=== PATIENT | female | born 1985 | race African-American/Black ===

== ENCOUNTER 2020-11-28 08:29 | Emergency (ER) | payer OTHER, SELFPAY ==
[2020-11-28 08:38] VITALS: BP 132/92; PULSE 82; RESP 20; TEMP 36.2; O2SAT 100
--- NOTE | 2020-11-28 09:12 | ED.FEMALEGU ---
HPI - Female Genitourinary General Chief complaint: Urogenital-Female Stated complaint: Poss yeast or STD infection Time Seen by Provider: 11/28/20 09:04 Source: patient and RN notes reviewed Mode of arrival: ambulatory Limitations: no limitations History of Present Illness HPI Narrative: Patient presents today complaining of a 2-day history of thick white vaginal discharge and external genital itching. States the symptoms began 2 days after having intercourse with her significant other. Denies any urinary symptoms to include dysuria, frequency, urgency. She is currently menstruating. Believing she has a vaginal yeast infection, she started using some Monistat 7 and is currently on day 2. Denies any relief of symptoms. She called and made an appointment with her ENERGY CONSERVATION ENGINEER, which is in 3 days. MD elicited complaint: vaginal discharge and genital itching Related Data Home Medications Medication Instructions Recorded Confirmed acyclovir 400 mg PO BID 11/28/20 11/28/20 amlodipine 5 mg PO DAILY 11/28/20 11/28/20 hydrochlorothiazide 25 mg PO DAILY 11/28/20 11/28/20 norethindrone ac-eth estradiol 1 tablet PO DAILY 11/28/20 11/28/20 [Junel ()] Allergies Allergy/AdvReac Type Severity Reaction Status Date / Time acetaminophen [From Vicodin] Allergy Mild Hives Verified 11/28/20 08:57 hydrocodone [From Vicodin] Allergy Mild Hives Verified 11/28/20 08:57 peanut Allergy Mild Dyspnea / Verified 11/28/20 08:57 SOB sulfamethoxazole Allergy Mild hives Verified 11/28/20 08:57 trimethoprim Allergy Mild hives Verified 11/28/20 08:57 Review of Systems Review of Systems: Narrative: CONSTITUTIONAL: Denies body aches, fever, chills, or sweats. EYES: Denies visual changes, redness, or discharge. ENT: Denies rhinorrhea, congestion, sore throat, or otalgia. CARDIOVASCULAR: Denies chest pain, palpitations, or edema. RESPIRATORY: Denies cough or dyspnea. GASTROINTESTINAL: Denies abdominal pain, nausea, vomiting, or diarrhea. GENITOURINARY: Denies dysuria.+ Vaginal discharge, genital itching SKIN: Denies rash, itching, or wounds. MUSCULOSKELETAL: Denies back pain, joint pain, or myalgia. NEUROLOGIC: Denies headache, numbness, tingling, or weakness. PSYCH: Denies depression or anxiety. [facility] Past Medical History Medical History (Updated 11/28/20 @ 09:18 by Rosetta Farris, INFERTILITY MEDICAL ASSISTANT, ) Hypertension Comments At time of signature, I have reviewed and agree with nursing past medical, surgical, social and family history unless otherwise noted. Please see nursing chart for further information. There is no relevant family history pertinent to the presenting complaint Exam Narrative: Exam Narrative: GENERAL: Well-appearing, well-nourished, and in no acute distress. HEAD: Normocephalic, atraumatic. EYES: EOMI. No redness or drainage. Conjunctivae normal. ENT: Mucous membranes pink and moist. NECK: Normal AROM. CHEST: No respiratory distress. : External genital irritation and mild edema. Pelvic exam shows no internal erythema or irritation of the vaginal canal or cervix. Moderate amount of blood in the vaginal canal. No other discharge noted. No tenderness to the vagina. -CMT MUSCULOSKELETAL: No bony tenderness. EXTREMITIES: Normal range of motion. No edema. SKIN: Warm, dry, no rash. Capillary refill normal. Normal skin turgor. NEURO: No focal deficits. Alert and oriented x3. Gait steady. PSYCH: Normal affect. No signs of depression or anxiety. Course Vital Signs Vital signs: Vital Signs Temperature 97.2 F L 11/28/20 08:38 Pulse Rate 82 11/28/20 08:38 Respiratory Rate 20 11/28/20 08:38 Blood Pressure 132/92 H 11/28/20 08:38 Pulse Oximetry 100 11/28/20 08:38 Temperature 97.2 F L 11/28/20 08:38 Pulse Rate 82 11/28/20 08:38 Respiratory Rate 20 11/28/20 08:38 Blood Pressure 132/92 H 11/28/20 08:38 Pulse Oximetry 100 11/28/20 08:38 Reviewed. Pt has been instructed to follow up wit
== END 2020-11-28 09:22 | disposition home or self-care (01) ==
PROVIDERS: Emergency Provider Nurse Practitioner; PCP Family Medicine
DX: B37.3 Candidiasis of vulva and vagina (principal); I10 Essential (primary) hypertension
CPT/HCPCS: 81003; 99203; G0463

== ENCOUNTER 2021-08-06 17:24 | Emergency (ER) | payer OTHER, SELFPAY ==
[2021-08-06 17:30] VITALS: BP 130/80; PULSE 71; RESP 18; TEMP 37.2; O2SAT 100
--- NOTE | 2021-08-06 17:37 | ED.FEMALEGU ---
HPI - Female Genitourinary General Chief complaint: Urogenital-Female Stated complaint: Kidney infection Time Seen by Provider: 08/06/21 17:37 Source: patient and RN notes reviewed History of Present Illness HPI Narrative: Patient is a 36-year-old female who presents the urgent care with complaints of possible UTI. Patient states that she has had left flank pain and urgency for the last 2 days. Patient is taken ibuprofen for her symptoms. Patient denies of any fever, chills, nausea, vomiting or blood in the urine. Patient states that her urgency is pretty normal for her because she drinks a lot of water and is on a water pill due to her high blood pressure. Patient denies of any history of diabetes or kidney disease. Patient denies of any recent strenuous activity or heavy lifting. No other acute complaints. No acute distress noted. Patient aware of the plan of care. Some parts of this dictation were generated by voice recognition software and may contain typographical and/or grammatical inaccuracies. Related Data Home Medications Medication Instructions Recorded Confirmed norethindrone ac-eth estradiol 1 tablet PO DAILY 11/28/20 08/06/21 [Junel ()] Allergies Allergy/AdvReac Type Severity Reaction Status Date / Time hydrocodone [From Vicodin] Allergy Mild Hives Verified 08/06/21 17:46 peanut Allergy Mild Dyspnea / Verified 08/06/21 17:46 SOB sulfamethoxazole Allergy Mild hives Verified 08/06/21 17:46 trimethoprim Allergy Mild hives Verified 08/06/21 17:46 Review of Systems Review of Systems: CONSTITUTIONAL: Denies fever, chills, or sweats. EYES: Denies visual changes, redness, or discharge. ENT: Denies rhinorrhea, congestion, sore throat, or otalgia. CARDIOVASCULAR: Denies chest pain, palpitations, or edema. RESPIRATORY: Denies cough or dyspnea. GASTROINTESTINAL: Denies abdominal pain, nausea, vomiting, or diarrhea. GENITOURINARY: Reports of left flank pain and urgency SKIN: Denies rash or itching. MUSCULOSKELETAL: Denies back pain, joint pain, or myalgia. NEUROLOGIC: Denies headache, numbness, or weakness. All other systems reviewed are negative, except as documented in HPI. COUNTS INCLUDE 234 BEDS AT THE [facility] Past Medical History Medical History (Updated 08/06/21 @ 18:00 by KUNAL Cantu) Hypertension Comments At the time of my signature, I reviewed and agree with the nursing past medical, surgical, social, and family history. There is no relevant family history pertinent to the patient complaint. Exam Narrative: GENERAL: This is a well-nourished, well-developed patient, in no apparent distress. HEAD: normocephalic, atraumatic. EYES: PERRL. Sclera clear/white. Vision is grossly intact. EARS: External ears normal NOSE: External nose normal with no obvious nasal discharge, nares without redness, no rhinorrhea. THROAT: Mucous membranes moist NECK: Neck supple CARDIOVASCULAR: Regular rate and rhythm without murmurs, gallops, or rubs. RESPIRATORY: Clear to auscultation. Breath sounds equal bilaterally. No wheezes, rales, or rhonchi. GASTROINTESTINAL: Abdomen soft, non-tender, nondistended. Bowel sounds are active. SKIN: warm, intact with no suspicious lesions or rash, good texture and turgor. NEURO: awake, alert, and oriented to person, place and time. There were no obvious focal neurologic abnormalities. EXTREMITIES: No clubbing, cyanosis, or edema. BACK: Left CVA tenderness. Pain exacerbated with rotation of the back and bending at the waist. Course Vital Signs Vital signs: Vital Signs Temperature 98.9 F 08/06/21 17:30 Pulse Rate 71 08/06/21 17:30 Respiratory Rate 18 08/06/21 17:30 Blood Pressure 130/80 08/06/21 17:30 Pulse Oximetry 100 08/06/21 17:30 Temperature 98.9 F 08/06/21 17:30 Pulse Rate 71 08/06/21 17:30 Respiratory Rate 18 08/06/21 17:30 Blood Pressure 130/80 08/06/21 17:30 Pulse Oximetry 100 08/06/21 17:30 Reviewed MDM - Female Genitourinary MDM
== END 2021-08-06 18:02 | disposition home or self-care (01) ==
PROVIDERS: Emergency Provider Nurse Practitioner Family; PCP Family Medicine
DX: R10.9 Unspecified abdominal pain (principal); I10 Essential (primary) hypertension
CPT/HCPCS: 81003; 99213; G0463

== ENCOUNTER 2025-07-26 10:01 | Emergency (ER) | payer OTHER, SELFPAY ==
[2025-07-26 10:06] VITALS: BP 132/99; PULSE 97; RESP 20; TEMP 36.4; O2SAT 100
--- OUTSIDE RECORDS SUMMARY | 2025-07-26 10:31 | XMS_ITS | Clinical Summary ---
Author Organization [facility] Address [address] [place] [address] Phone Care Team Providers Care Mimeograph Operator Name Role Phone Bill Ackerman MD Primary Care Provider [phone] Allergies Active Allergy Reactions Criticality Noted Date Comments Sulfamethoxazole-Trimethoprim Hives 2015 Hydrocodone Hives 08/21/2016 Peanut Oil Anaphylaxis 07/25/2015 anaphylaxis Pseudoephedrine Hcl Hives 07/25/2015 Medications ALBUTEROL IN take 2 Puffs by inhalation 4 times daily as needed. Active Norethindrone Acet-Ethinyl Est (MICROGESTIN) 1.5-30 MG-MCG TabletIndications:A bnormal Uterine Bleeding,PHARMACIST I AM WRITING FOR 3 PACKS OF THE 21 DAY BUBBLE PACK. Take 1 Tab by mouth daily. Indications: Symptomatic Variation from Normal Periods, PHARMACIST I AM WRITING FOR 3 PACKS OF THE 21 DAY BUBBLE PACK. 63 Tab 12/08/19 20 Active ibuprofen (MOTRIN) 800 MG Tablet Take 1 Tab by mouth every 8 hours. 30 Tab 12/08/19 20 Active hydrOXYzine (ATARAX) 25 MG Tablet Take 1 Tab by mouth every 6 hours as needed for Itching. 20 Tab 03/03/20 20 Active amLODIPine (NORVASC) 5 MG Tablet Take 1 Tab by mouth daily. 30 Tab 03/31/20 20 Active hydroCHLOROthiazide 25 MG Tablet Take 25 mg by mouth daily. Active traMADol (ULTRAM) 50 MG Tablet Take 1 Tablet by mouth every 6 hours as needed for Moderate or more severe pain. 20 Tablet 11/02/19 21 Active Additional Information Patient not taking.Reported on 01/16/2022 fluticasone (FLONASE) 50 MCG/ACT Suspension 1-2 Sprays by Nasal route daily. Use in each nostril as directed. 1 Bottle 02/26/20 21 Active albuterol 108 (90 Base) MCG/ACT Aerosol Solution take 2 Puffs by inhalation every 6 hours as needed for Cough. 6.7 g 09/06/20 21 Active aluminum & magnesium hydroxide-simethico ne 200-200-20 MG/5ML SUSP 90 mL, diphenhydrAMINE 12.5 MG/5ML LIQD 31.25 mg, Lidocaine Viscous HCl 2 % SOLN 20 mL 5-10 mL by Swish & Spit route every 6 hours as needed for Irritation. for mouth/throat discomfort. Use the following amounts for each 120 mL dispensed Pharmacist Mixture Instructions *ALUM & MAG HYDROXIDE-SIMETH 200-200-20 MG/5ML PO SUSP -- 90 mL *DIPHENHYDRAMINE HCL 12.5 MG/5ML PO ELIX -- 31.25 MG *LIDOCAINE VISCOUS 2% MT SOLN -- 20 mL 360 mL 11/22/19 23 Active naproxen (NAPROSYN) 500 MG Tablet Take 1 Tablet by mouth 2 times daily as needed for Moderate or more severe pain. 10 Tablet 04/11/20 23 Active predniSONE (DELTASONE) 50 MG Tablet Take 1 Tablet by mouth daily. 5 Tablet 07/01/20 25 Active naproxen (NAPROSYN) 500 MG Tablet Take 1 Tablet by mouth 2 times daily as needed for Moderate or more severe pain. 20 Tablet 07/01/20 25 Active Active Problems No known active problems Encounters Date Type Department Care Team Description 07/01/2025 8:59 AM CDT - 07/01/2025 10:01 AM CDT Emergency [facility] Emergency [address] [place] [address] Dionicio Pulido DO Bilateral carpal tunnel syndrome Discharge Disposition: Discharged to home or Selfcare 07/01/2025 Travel from Last 3 Months Immunizations Immunization Administration Dates Next Due DTP Vaccine 01/29/1989,09/06/1988,05/17/1988 Hepatitis B Vaccine, Pediatric/adolescent 1996,04/18/1997 Hepatitis B, Adolescent/high Risk 998 Hib Vaccine,unspecified Formulation 01/29/1989 MMR Vaccine 09/06/1988 OPV 09/06/1988,05/17/1988 TDAP Vaccine 04/12/2019 Social History Tobacco Use Types Packs/Day Years Used Date Smoking Tobacco: Former Smokeless Tobacco: Never Tobacco Cessation:Counseling Given: Not Answered Alcohol Use Standard Drinks/Week Comments Yes 0 (1 standard drink = 0.6 oz pur e alcohol) ONCE A MONTH Sexually Active Control Partners Comments Yes Condom Comments No Sex and Gender Information Value Date Recorded Sex Assigned at Not on file Legal 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 Gender Identity Not on file Sexual Orientation Not on file Last Filed Vital Signs Vital Sign Reading Time Taken Comments Blood Pressure 128/88 07/01/2025 10:00 AM CDT Pulse 80 07/01/2025 10:00 AM CDT Temperature 36.3 C (97.4 F) 07/01/2025 10:00 AM CDT Respiratory Rate 16 07/01/2025 10:00 AM CDT Oxygen Saturation 100% 07/01/2025 10:00 AM CDT Inhaled Oxygen Concentration - - Weight 91.3 kg (201 lb 4.5 oz) 07/01/2025 9:04 A M CDT Height 165.1 cm (5' 5) 07/01/2025 9:04 AM CDT Body Mass Index 33.49 07/01/2025 9:04 AM CDT Plan of Treatment Health Maintenance Due Date Last Done Comments Hepatitis C Virus (HCV) Screening 1987 Pap Smear 2008 Human Papillomavirus (HPV) Immunization (1 - 3-dose SCDM series) 2014 Cervical Cancer Screening (CCS) 2017 HPV/Cotest 2017 Influenza Immunization (#1) 2025 SARS-COV-2 Immunization ( - season) 2025 DTaP/Tdap/Td Immunization (5 - Td or Tdap) 04/12/2029 04/12/2019, 01/29/1989, 09/06/1988, Additional history exists Respiratory Syncytial Virus (RSV) Immunization (Adult) (1 - 1-dose 75+ series) 2062 Hepatitis B Immunization Completed 998, 05/23/1997, 04/18/1997 TdaP Immunization Discontinued 04/12/2019 Meningococcal Immunization (ACWY) Aged Out No longer eligible based on patient's age to complete this topic Pneumococcal Immunization Combined Aged Out No longer eligible based on patient's age to complete this topic Rotavirus Immunization Aged Out No lo nger eligible based on patient's age to complete this topic Procedures Procedure Name Priority Date/Time Associated Diagnosis Comments POCT URINE HCG () STAT 07/01/2025 9:30 AM CDT from Last 3 Months Results * POCT Urine HCG () (07/01/2025 9:30 AM CDT) POC URINE Negative POC URINE CONTROL Hypoid Gear Generator Pass Urine 07/01/2025 9:30 AM CDT Dionicio Pulido DO POINT OF CARE TESTING ( MANUAL) Final Result from Last 3 Months Insurance MEDICAID [employer] MEDICAID [facility] * Guarantor: [facility] Account Type Relation to Patient Date of Phone Billing Address Institutional Other [id number] [id number] Care Teams Mimeograph Operator Relationship Specialty Start Date End Date Bill Ackerman MD [address] [place] [address] [address] [place] [id number] PCP - General Family Medicine 05/21/17
--- OUTSIDE RECORDS SUMMARY | 2025-07-26 10:31 | XMS_ITS | Data Portability ---
[facility] Organization [facility] [address] [facility] [place] [address] Care Team Providers Care Casting Finisher Name Role Phone BILL RAE Primary Care Provider [phone] LAURITA MEDELLIN Aerial Gunner Assessment Encounter Date Assessment Date Assessment LastModified by Organization Details LastModified Time 08/29/2022 08/29/2022 new ocp called into pharmacy, pt given u/s order and told to follow up with [facility]. pt v/u. [email or web address] Not available 08/29/2022 15:18:27 07/01/2023 07/01/2023 will check a prolactin as well as a diagnostic mammogram despite normal exam will call with results [email or web address] Not available 07/01/2023 14:38:32 05/26/2024 05/26/2024 Certain lab tests will be repeated. [email or web address] Not available 05/31/2024 10:14:27 Plan of Treatment Reminders Order Date Submit Date Provider Last Modified By Organization Details Last Modified Time Details Appointments None recorded. Lab HbA1c (hemoglob in A1c), blood 2023 024 In-Office Order, Internal Use Only DO Not Attach Compendium DO Not Attach Compendium, Do Not Delete/merge, [id number] 17:15:25 hepatitis B surface Ab, qualitati ve, serum 2023 024 [facility], [address] [place] [address], [address], 4 06:18:01 HBsAg (hepatiti s B surface Ag), EIA, serum 2023 024 [email or web address], [address] [facility], [address], [place], [address], 4 14:00:34 hepatitis panel (A+B+C), acute, serum 2023 024 [facility], [address] [facility], [facility] [address], [place], [address], 4 06:18:00 prolactin , serum 2022 023 [facility], [address] [facility], [facility] [address], [place], [address], 3 11:14:42 CMP, serum or plasma 2022 023 [facility], [address] [facility], [facility] [address], [place], [address], 3 20:09:04 lipid panel, serum 2022 023 [facility], [address] [facility], [facility] [address], [place], [address], 3 20:09:04 CBC w/ auto diff 2022 023 [facility], [address] [place] [address], [facility] [address], [place], [address], 3 20:09:05 TSH, ultra-sen sitive, serum 2022 023 [facility], [address] [facility], [facility] [address], [place], [address], 3 08:33:34 HbA1c (hemoglob in A1c), blood 2022 023 [email or web address] In-Office Order, Internal Use Only DO Not Attach Compendium DO Not Attach Compendium, Do Not Delete/merge, [id number] 3 14:40:54 vitamin D, 25-hydrox y, total, serum 2022 023 [facility], [address] [facility], [facility] [address], [place], [address], 3 08:33:35 Referral gynecolog ic surgery referral 2022 023 [employer], [address], [address], [place], [address], 4 17:37:14 Procedures None recorded. Surgeries None recorded. Imaging MAMMO, diagnosti c, digital, bilateral 2022 023 [facility] Scheduling, [address] [facility] [place], [address], 3 17:25:35 US, pelvis, transabdo ted + transvagi nal 2021 022 [facility] Scheduling, [address] [facility] [place], [address], 3 11:47:55 Medication Orders Vitamin D2 1,250 mcg (50,000 unit) capsule 2023 024 [place] [id number], [address], [place], [address], 4 17:20:46 Ozempic 0.25 mg or 0.5 mg (2 mg/1.5 mL) subcutane ous pen injector 2022 023 [email or web address] Not available 3 12:59:24 albuterol sulfate 2.5 mg/3 mL (0.083 %) solution for nebulizat ion 2022 023 [facility] Not available 3 10:58:25 albuterol sulfate HFA 90 mcg/actua tion aerosol inhaler 2022 023 [facility] Not available 3 10:58:24 amlodipin e 5 mg tablet 2022 023 [facility] Not available 3 10:55:38 hydrochlo rothiazid e 25 mg tablet 2022 023 [facility] Not available 3 10:55:37 Diflucan 150 mg tablet 2021 etodaroma Not available 4 16:46:30 metronida zole 500 mg tablet 2021 [email or web address] Not available 4 11:24:27 Ortho Micronor 0.35 mg tablet 2021 etodaroma Not available 4 16:46:52 Patient TargetsNo targets recorded. Patient Instructions Encounter Date Encounter Id Patient Instructions Last Modified By Organization Details Last Modified Time 08/29/2022 [id number] heavy menstrual periods: care instructions [email or web address] Not available 08/29/2022 15:20:07 05/15/2023 [id number] learning about type 2 diabetes [email or web address] Not available 05/15/2023 10:54:38 type 2 diabetes: care instructions [email or web address] Not available 05/15/2023 10:54:38 A healthy lifestyle: care instructions [email or web address] Not available 05/15/2023 14:40:54 learning about high blood pressure [email or web address] Not available 05/15/2023 10:55:33 07/31/2023 [id number] heavy menstrual periods: care instructions [email or web address] Not available 07/31/2023 15:30:07 uterine fibroids: care instructions [email or web address] Not available 07/31/2023 15:30:07 05/26/2024 [id number] A healthy lifestyle: care instructions Not available 05/26/2024 17:15:25 Reason for Referral Gynecologic Surgery Referral for Uterine leiomyoma Referring Physician: Laurita Medellin, Getterer, Encounter Date: 07/31/2023 Results Created Date Observation Date Name Description Value Unit Range Abnormal Flag Note LastModifiedBy Organization Detail LastModifiedTime 05/15/20 23 05/15/2023 LIPID PANEL cholesterol, total 188 mg/dL 100-19 9 Not Available [facility] [address] [place], [address], 05/15/2023 20:09:03 05/15/20 23 05/15/2023 LIPID PANEL triglyceride s 621 mg/dL 0-149 above high normal Not Available [facility] [address] [place], [address], 05/15/2023 20:09:03 05/15/20 23 05/15/2023 LIPID PANEL HDL cholesterol 56 mg/dL 40-999 Not Available [facility] Department [address] [place] [address], [address], 05/15/2023 20:09:03 05/15/20 23 05/15/2023 LIPID PANEL VLDL cholesterol alona 124 mg/dL 5-40 above high normal Not Available [facility] [address] [place] [address], [address], 05/15/2023 20:09:03 05/15/20 23 05/15/2023 LIPID PANEL LDL chol calc (nih) 117 mg/dL 0-99 above high normal Not Available [facility] [address] [place] [address], [address], 05/15/2023 20:09:03 05/15/20 23 05/15/2023 COMP. METAB OLIC PANEL (14) glucose 143 mg/dL 70-99 above high normal Not Available [facility] [address] [place], [address], 05/15/2023 20:09:04 05/15/20 23 05/15/2023 COMP. METAB OLIC PANEL (14) BUN 12 mg/dL 6-20 Not Available [facility] [address] [place], [address], 05/15/2023 20:09:04 05/15/20 23 05/15/2023 COMP. METAB OLIC PANEL (14) creatinine 0.80 mg/dL 0.76-1 .27 Not Available [facility] [address] [place] [address], [address], 05/15/2023 20:09:04 05/15/20 23 05/15/2023 COMP. METAB OLIC PANEL (14) eGFR 98 >=60 Units for eGFR value s are mL/mi n/1.7 3 The eGFR Calcu latio n has not been valid ated for patie nts under the age of 18. If test resul ts are displ ayed for a patie nt under the age of 18, disre gerry that value . Not Available [facility] [address] [place] [address], [address], 05/15/2023 20:09:04 05/15/20 23 05/15/2023 COMP. METAB OLIC PANEL (14) BUN/creatini ne ratio 15 9-23 Not Available [facility] Department [address] [place] [address], [address], 05/15/2023 20:09:04 05/15/20 23 05/15/2023 COMP. METAB OLIC PANEL (14) sodium 139 mmol/ L 134-14 4 Not Available [facility] [address] [place] [address], [address], 05/15/2023 20:09:04 05/15/20 23 05/15/2023 COMP. METAB OLIC PANEL (14) potassium 4.5 mmol/ L 3.5-5. 2 Not Available [facility] [address] [place] [address], [address], 05/15/2023 20:09:04 05/15/20 23 05/15/2023 COMP. METAB OLIC PANEL (14) chloride 103 mmol/ L 96-106 Not Available [facility] [address] [place] [address], [address], 05/15/2023 20:09:04 05/15/20 23 05/15/2023 COMP. METAB OLIC PANEL (14) carbon dioxide, total 22 mmol/ L 20-29 Not Available [facility] [address] [place], [address], 05/15/2023 20:09:04 05/15/20 23 05/15/2023 COMP. METAB OLIC PANEL (14) calcium 9.6 mg/dL 8.7-10 .2 Not Available [facility] [address] [place], [address], 05/15/2023 20:09:04 05/15/20 23 05/15/2023 COMP. METAB OLIC PANEL (14) protein, total 7.1 g/dL 6.0-8. 5 Not Available [facility] [address] [place] [address], [address], 05/15/2023 20:09:04 05/15/20 23 05/15/2023 COMP. METAB OLIC PANEL (14) albumin 4.2 g/dL 3.9-4. 9 Not Available [facility] [address] [place], [address], 05/15/2023 20:09:04 05/15/20 23 05/15/2023 COMP. METAB OLIC PANEL (14) globulin, total 2.9 g/dL 1.5-4. 5 Not Available [facility] [address] [place], [address], 05/15/2023 20:09:04 05/15/20 23 05/15/2023 COMP. METAB OLIC PANEL (14) A/G ratio 1.5 1.2-2. 2 Not Available [facility] [address] [place] [address], [address], 05/15/2023 20:09:04 05/15/20 23 05/15/2023 COMP. METAB OLIC PANEL (14) bilirubin, total 0.5 mg/dL 0.0-1. 2 Not Available [facility] [address] [place], [address], 05/15/2023 20:09:04 05/15/20 23 05/15/2023 COMP. METAB OLIC PANEL (14) alkaline phosphatase 66 IU/L 44-121 Not Available [facility] Department [address] [place], [address], 05/15/2023 20:09:04 05/15/20 23 05/15/2023 COMP. METAB OLIC PANEL (14) AST (SGOT) 17 IU/L 0-40 Not Available [facility] Department [address] [place], [address], 05/15/2023 20:09:04 05/15/20 23 05/15/2023 COMP. METAB OLIC PANEL (14) ALT (SGPT) 15 IU/L 0-32 Not Available [facility] Department [address] [place], [address], 05/15/2023 20:09:04 05/15/20 23 05/15/2023 CBC WITH DIFFE RENTI AL/PL ATELE T WBC 5.8 x10e3 /uL 3.4-10 .8 Not Available [facility] [address] [place], [address], 05/15/2023 20:09:05 05/15/20 23 05/15/2023 CBC WITH DIFFE RENTI AL/PL ATELE T RBC 4.16 x10e6 /uL 3.77-5 .28 Not Available [facility] [address] [place], [address], 05/15/2023 20:09:05 05/15/20 23 05/15/2023 CBC WITH DIFFE RENTI AL/PL ATELE T hemoglobin 13.2 g/dL 11.1-1 5.9 Not Available [facility] [address] [place], [address], 05/15/2023 20:09:05 05/15/20 23 05/15/2023 CBC WITH DIFFE RENTI AL/PL ATELE T hematocrit 40.7 % 34.0-4 6.6 Not Available [facility] [address] [place], [address], 05/15/2023 20:09:05 05/15/20 23 05/15/2023 CBC WITH DIFFE RENTI AL/PL ATELE T MCV 98 fL 79-97 above high normal Not Available [facility] [address] [place], [address], 05/15/2023 20:09:05 05/15/20 23 05/15/2023 CBC WITH DIFFE RENTI AL/PL ATELE T MCH 31.7 pg 26.6-3 3.0 Not Available [facility] [address] [place], [address], 05/15/2023 20:09:05 05/15/20 23 05/15/2023 CBC WITH DIFFE RENTI AL/PL ATELE T MCHC 32.4 g/dL 31.5-3 5.7 Not Available [facility] [address] [place], [address], 05/15/2023 20:09:05 05/15/20 23 05/15/2023 CBC WITH DIFFE RENTI AL/PL ATELE T RDW 12.7 % 11.5-1 4.5 Not Available [facility] [address] [place], [address], 05/15/2023 20:09:05 05/15/20 23 05/15/2023 CBC WITH DIFFE RENTI AL/PL ATELE T platelets 310 x10e3 /uL 150-45 0 Not Available [facility] [address] [place], [address], 05/15/2023 20:09:05 05/15/20 23 05/15/2023 CBC WITH DIFFE RENTI AL/PL ATELE T neutrophils 40 % notest b. Not Available [facility] [address] [place], [address], 05/15/2023 20:09:05 05/15/20 23 05/15/2023 CBC WITH DIFFE RENTI AL/PL ATELE T lymphs 50 % notest b. Not Available [facility] [address] [place], [address], 05/15/2023 20:09:05 05/15/20 23 05/15/2023 CBC WITH DIFFE RENTI AL/PL ATELE T monocytes 8 % notest b. Not Available [facility] [address] [place], [address], 05/15/2023 20:09:05 05/15/20 23 05/15/2023 CBC WITH DIFFE RENTI AL/PL ATELE T eos 2 % notest b. Not Available [facility] [address] [place], [address], 05/15/2023 20:09:05 05/15/20 23 05/15/2023 CBC WITH DIFFE RENTI AL/PL ATELE T basos 1 % notest b. Not Available [facility] [address] [place], [address], 05/15/2023 20:09:05 05/15/20 23 05/15/2023 CBC WITH DIFFE RENTI AL/PL ATELE T neutrophils (absolute) 2.3 x10e3 /uL 1.4-7. 0 Not Available [facility] [address] [place], [address], 05/15/2023 20:09:05 05/15/20 23 05/15/2023 CBC WITH DIFFE RENTI AL/PL ATELE T lymphs (absolute) 2.9 x10e3 /uL 0.7-3. 1 Not Available [facility] [address] [place], [address], 05/15/2023 20:09:05 05/15/20 23 05/15/2023 CBC WITH DIFFE RENTI AL/PL ATELE T monocytes(ab solute) 0.4 x10e3 /uL 0.1-0. 9 Not Available [facility] [address] [place], [address], 05/15/2023 20:09:05 05/15/20 23 05/15/2023 CBC WITH DIFFE RENTI AL/PL ATELE T eos (absolute) 0.1 x10e3 /uL 0.0-0. 4 Not Available [facility] [address] [place], [address], 05/15/2023 20:09:05 05/15/20 23 05/15/2023 CBC WITH DIFFE RENTI AL/PL ATELE T baso (absolute) 0.0 x10e3 /uL 0.0-0. 2 Not Available [facility] [address] [place], [address], 05/15/2023 20:09:05 05/15/20 23 05/15/2023 CBC WITH DIFFE RENTI AL/PL ATELE T immature granulocytes 0.2 % notest b. Not Available [facility] [address] [place], [address], 05/15/2023 20:09:05 05/15/2005/15/2023 CBC WITH DIFFE RENTI AL/PL ATELE T immature grans (abs) 0.0 x10e3 /uL 0.0-0. 1 Not Available [facility] [address] [place], [address], 05/15/2023 20:09:05 05/15/20 23 05/15/2023 CBC WITH DIFFE RENTI AL/PL ATELE T NRBC 0 % 0-0 Not Available [facility] [address] [place], [address], 05/15/2023 20:09:05 05/15/20 23 05/16/2023 TSH TSH 2.220 uIU/m L 0.450- 4.500 Not Available [facility]) [address] [facility], [place], [address], 05/16/2023 08:33:34 05/15/20 23 05/16/2023 VITAM IN D, 25-HY DROXY vitamin D, 25-hydroxy 19.9 NG/mL 30.0-1 00.0 below low normal Vitam in D defic iency has been defin ed by the Insti tute of Medic ine and an Endoc rine Socie ty pract ice guide line as a level of serum 25-OH vitam in D less than 20 ng/mL (1,2) . The Endoc rine Socie ty went on to furth er defin e vitam in D insuf ficie ncy as a level betwe en 21 and 29 ng/mL (2). 1. IOM (Inst itute of Medic ine). 2010. Dieta ry refer ence intak es for calci um and D. Kin ofng [place]: The [facility] Press . 2. Mandy goncalves MF, Isma padilla [place], Suzy off-F errar i MARTINEZ, et al. Evalu ation , treat ment, and preve ntion of vitam in D defic iency : an Endoc rine Socie ty clini alona pract ice guide line. JCEM. 2010; 96(7) :1911 -30. Not Available [facility] ([facility]) [address] [facility], [place], [address], 05/16/2023 08:33:35 05/15/20 23 05/15/2023 HbA1c (hemo globi n A1c), blood HbA1c 6.5 Not Available In-Office Order Internal Use Only DO Not Attach Compendium DO Not Attach Compendium, Do Not Delete/merge, [id number] 05/15/2023 10:30:04 07/01/20 23 07/02/2023 PROLA CTIN prolactin 14.4 NG/mL 4.8-23 .3 Not Available [facility]) [address] [facility], [place], [address], 07/02/2023 11:14:42 05/26/20 24 05/26/2024 HbA1c (hemo globi n A1c), blood HbA1c 5.5 Not Available In-Office Order Internal Use Only DO Not Attach Compendium DO Not Attach Compendium, Do Not Delete/merge, [id number] 05/26/2024 16:56:20 06/14/20 24 06/15/2024 ACUTE HEPAT ITIS hep A Ab, IgM NEGATI VE negati ve A negat kalia anti- HAV IgM resul t sugge sts no recen t or curre nt HAV infec tion. Not Available [facility]) [address] [facility], [place], [address], 06/15/2024 06:18:00 06/14/20 24 06/15/2024 ACUTE HEPAT ITIS HBsAg screen NEGATI VE negati ve Not Available [facility]) [address] [facility], [place], [address], 06/15/2024 06:18:00 06/14/20 24 06/15/2024 ACUTE HEPAT ITIS hep B core Ab, IgM NEGATI VE negati ve Not Available [facility]) [address] [facility], [place], [address], 06/15/2024 06:18:00 06/14/20 24 06/15/2024 ACUTE HEPAT ITIS HCV Ab NON REACTI VE nonrea ctive Not Available [facility]) [address] [facility], [place], [address], 06/15/2024 06:18:00 06/14/20 24 06/15/2024 INTER PRETA TION: interpretati on: Commen t Not infec marlena with HCV unles s early or acute infec tion is suspe cted (whic h may be delay ed in an immun ocomp romis ed indiv idual ), or other evide nce exist s to indic ate HCV infec tion. Not Available [facility]) [address] [facility], [place], [address], 06/15/2024 06:18:01 06/14/20 24 06/15/2024 HEP B SURFA CE AB, QUAL hep B surface Ab, qual REACTI VE Non React kalia: Not immun e to HBV infec tion. Equiv ocal: Unabl e to deter mine if anti- HBs is prese nt at level s consi stent with immun ity. React kalia: Anti- HBs yesenia ntrat ion detec marlena at great er than 10 mIU/m L. Indiv idual is consi dered to be immun e to infec tion with HBV. Not Available [facility]) [address] [facility], [place], [address], 06/15/2024 06:18:01 11/19/19 25 11/18/2024 Influ sandra virus A and B and SARS- CoV-2 (COVI D-19) and Respi rator y syncy tial virus RNA panel - Respi rator y syste m speci men by GRAYSON with probe detec tion influenza virus A RNA [presence] in upper respiratory specimen by GRAYSON with probe detection Positi ve text: negati ve, error abnormal FLU A Posit kalia (A) Negat kalia, Error 11/18 12:10 AM CORPORATE LAW ASSISTANT [facility] [employer] [facility] Not Available Not Available 11/23/2024 12:02:49 11/19/19 25 11/18/2024 Influ sandra virus A and B and SARS- CoV-2 (COVI D-19) and Respi rator y syncy tial virus RNA panel - Respi rator y syste m speci men by GRAYSON with probe detec tion influenza virus B RNA [presence] in upper respiratory specimen by GRAYSON with probe detection Negati ve text: negati ve FLU B Negat kalia Negat kalia 11/18 12:10 AM CORPORATE LAW ASSISTANT [facility] [employer] [facility] Not Available Not Available 11/23/2024 12:02:49 11/19/19 25 11/18/2024 Influ sandra virus A and B and SARS- CoV-2 (COVI D-19) and Respi rator y syncy tial virus RNA panel - Respi rator y syste m speci men by GRAYSON with probe detec tion respiratory syncytial virus RNA [presence] in respiratory system specimen by GRAYSON with probe detection Negati ve text: negati ve RESP SYNC VIRUS Negat kalia Negat kalia 11/18 12:10 AM CORPORATE LAW ASSISTANT [facility] [employer] [facility] Not Available Not Available 11/23/2024 12:02:49 11/19/19 25 11/18/2024 Influ sandra virus A and B and SARS- CoV-2 (COVI D-19) and Respi rator y syncy tial virus RNA panel - Respi rator y syste m speci men by GRAYSON with probe detec tion sars-cov-2 (covid-19) N gene [presence] in specimen by GRAYSON with probe detection NOT DETECT ED text: (refer ence range for this test IS not detect ed) SARSC OV2 NOT DETEC MARLENA (Refe rence Range for this test is Not Detec marlena) 11/18 12:10 AM CORPORATE LAW ASSISTANT [facility] [employer] [facility] Not Available Not Available 11/23/2024 12:02:49 11/19/19 25 11/18/2024 Influ sandra virus A and B and SARS- CoV-2 (COVI D-19) and Respi rator y syncy tial virus RNA panel - Respi rator y syste m speci men by GRAYSON with probe detec tion interpretati on and review of laboratory results Abnorm al Not Available Not Available 12:02:49 01/23/2001/23/2025 Chlam ydia trach omati s and Neiss eria gonor rhoea e DNA panel - Speci men chlamydia trachomatis DNA [presence] in specimen by GRAYSON with probe detection NEGATI VE text: negati ve Presu med negat kalia for C. trach omati s. A negat kalia resul t does not precl ude C. trach omati s infec tion becau se resul ts are depen dent on adequ ate speci men colle ction , absen ce of inhib itors , and suffi cient DNA to be detec marlena. This test was perfo rmed using [employer] 5800 Real Time PCR. Not Available Not Available 04/04/2025 12:44:44 01/23/20 25 01/23/2025 Chlam ydia trach omati s and Neiss eria gonor rhoea e DNA panel - Speci men neisseria gonorrhoeae DNA [presence] in specimen by GRAYSON with probe detection NEGATI VE text: negati ve Presu med negat kalia for N. gonor rhoea e. A negat kalia resul t does not precl ude N. gonor rhoea e infec tion becau se resul ts are depen dent on adequ ate speci men colle ction , absen ce of inhib itors , and suffi cient DNA to be detec marlena. This test was perfo rmed using [employer] 5800 Real Time PCR. Not Available Not Available 04/04/2025 12:44:44 01/23/2001/23/2025 Chlam ydia trach omati s and Neiss eria gonor rhoea e DNA panel - Speci men interpretati on and review of laboratory results Normal Not Available Not Available 03/16 12:44:44 01/23/2001/24/2025 Bacte zaira ident ified in Urine by Cultu re bacteria identified in urine by culture MIXED GROWTH OF ONE OR MORE DISTAL URETHR AL CONTAM INANTS Not Available Not Available 12:44:44 01/09/2001/05/2023 US, pelvi s, trans abdom inal + trans vagin al No observ ation record ed. bettye More[facility] Scheduling [address], [place], [address], 01/08/2023 12:13:12 07/04/20 23 07/04/2023 US, gilson carreon bilsalma eraraulito No observ ation record ed. [facility] [address], [place], [address], 07/04/2023 17:25:53 07/04/20 23 07/04/2023 MAMMO , diagn ostic , digit al, bilat eral No observ ation record ed. [facility] [address], [place], [address], 07/04/2023 17:25:35 10/07/19 24 10/07/2023 XR, chest No observ ation record ed. [email or web address] Not Available 2023 14:38:01 07/21/20 24 07/21/2024 MAMMO , scree janeen, digit al, bilat eral No observ ation record ed. [facility] [address], [place], [address], 07/22/2024 11:35:25 07/21/20 24 07/21/2024 MAMMO , scree janeen, digit al, bilat eral No observ ation record ed. [facility] [address], [place], [address], 07/22/2024 11:35:15 07/21/20 24 07/21/2024 MAMMO , scree janeen, digit al, bilat eral No observ ation record ed. [facility] [address], [place], [address], 07/22/2024 11:35:04 Result Notes None recorded. Problems Name Problem SNOMED Code Status Onset Date Resolution Date Notes Provider Name and Address Organization Details Recorded Time Uterine leiomyoma 48545852 Active Gila La, RMA null, [place] [facility] 12:53:01 Vaginal discharge 078435350 Active Gila La, R[place] [facility] 12:53:01 Sexually transmitted infectious disease 0402412 Active Gila La, R[place] [facility] 12:53:01 Candidiasis of vagina 19281789 Active Gila La, R[place], [place] [facility] 12:53:01 Asthma 286585219 Active Gila Tovar RMPeter null, [facility] 2 12:53:01 Allergy Active MARGRET Guardado null, [facility] 2 12:53:01 Bacterial vaginosis 355349673 Active Gila Tovar RMA null, [facility] 2 12:53:01 Menorrhagia 501083121 Active Gila Tovar RMA null, [facility] 2 12:53:01 Genital herpes simplex 84435558 Active Gila Tovar RMA null, [facility] 2 12:53:01 Problem Notes None recorded. Procedures Surgical History Date Name Laterality Status Provider Name and Address Organization Details Recorded Time 10/20/2019 Date of Last Pap Smear completed Ivis Dang MA [facility] 12/22/2019 08:11:47 Imaging Results None recorded. Procedure Notes None recorded. Medical Equipment None Reported. Allergies Allergen ID Allergen Name Allergen Category Reaction Reaction Severity Criticality Documentation Date Start Date Code Code System Note Provider Name and Address Organization Details Recorded Time 529047 Sudafed medicatio n hives Not available Not available 04/09/2022 2 RxNorm Chrystal Covarrubias RN null, [facility] 2 15:59:18 769389 Ozempic medicatio n Not available Not available Not available 08/19/2023 07 RxNorm visio n probl ems Alem Minor RN [facility], [facility] 5 16:12:30 1646 acetamino phen medicatio n Not available Not available Not available 08/04/2014 161 RxNorm Sandra Mcdaniel [facility], [facility] 4 18:44:53 1647 acetamino phen / hydrocodo ne medicatio n Not available Not available Not available 08/04/2014 92852 2 RxNorm Sandra Mcdaniel [facility], [facility] 4 18:44:53 1648 Substance with sulfonami de structure and antibacte rial mechanism of action (substanc e) medicatio n Not available Not available Not available 08/04/2014 38863 8003 SNOMED Sandra Mcdaniel null, [place] [facility] 4 18:44:53 Medications Name Sig Start Date Stop Date Status Note LastModified by Organization Details LastModified Time microgest in 10/04 1-20 mg-mcg tabs 05/21 completed Not Available Not Available Not Available prednison e tab 20mgpredn isone active Not Available Not Available Not Available cyclobenz apr tab 5mgcyclob enzaprine hcl active Not Available Not Available Not Available tobramyci n jesús 0.3% optobramy sunil sulfate active Not Available Not Available Not Available ibuprofen tab 800mgibup rofen active Not Available Not Available Not Available valacyclo vir tab 500mgvala cyclovir hcl active Not Available Not Available Not Available cyclobenz aprine hcl 10 mg tabs active Not Available Not Available Not Available valacyclo vir hcl 500 mg tabs active Not Available Not Available Not Available 10/04 tabjunel 10/04 active Not Available Not Available Not Available tramadol hcl tab 50mgtrama dol hcl active Not Available Not Available Not Available microgest in tab 10/04micro gestin 10/04 active Not Available Not Available Not Available phenazopy rid tab 100mgphen azopyridi ne hcl active Not Available Not Available Not Available Prescript ion - Prior Authoriza tion Request active Not Available Not Available Not Available ciproflox acn tab 500mgcipr ofloxacin hcl active Not Available Not Available Not Available metronida zol tab 500mg active Not Available Not Available Not Available permethri n cre 5%permeth rin active Not Available Not Available Not Available hydrocodo ne/acetam inophen 5-325 mgtabs active Not Available Not Available Not Available amoxicill in/clavul anate potassium 500-125 mg tabs active Not Available Not Available Not Available cyclobenz aprine 10 mg tablet TAKE 1 TABLET BY MOUTH 3 TIMES DAILY NEEDED FOR MUSCLE SPASMS FOR UP TO 3 DAYS. 05/15 completed Not Available Not Available Not Available amoxicill in 500 mg capsule TAKE 1 CAPSULE BY MOUTH TWICE A DAY 10/21 completed Not Available Not Available Not Available hydrocodo ne 7.5 mg-ibupro fen 200 mg tablet 05/21 completed Not Available Not Available Not Available promethaz ine-DM 6.25 mg-15 mg/5 mL oral syrup 10/20 completed Not Available Not Available Not Available doxycycli ne hyclate 100 mg capsule TAKE 1 CAPSULE BY MOUTH TWICE A DAY FOR 7 DAYS active Not Available Not Available No t Available naproxen 375 mg tablet 10/20 completed Not Available Not Available Not Available nabumeton e 750 mg tablet 10/20 completed Not Available Not Available Not Available albuterol sulfate 2.5 mg/3 mL (0.083 %) solution for nebulizat ion INHALE 3 ML BY NEBULIZA TION 4 TIMES A DAY NEEDED active Not Available Not Available No t Available trazodone 50 mg tablet 10/20 completed Not Available Not Available Not Available cetirizin e 10 mg tablet TAKE 1 TABLET BY MOUTH EVERY DAY active Not Available Not Available No t Available azithromy sunil 250 mg tablet 05/07 completed Not Available Not Available Not Available ibuprofen 800 mg tablet 12/17 completed Not Available Not Available Not Available tizanidin e 4 mg tablet 10/20 completed Not Available Not Available Not Available fluconazo le 150 mg tablet TAKE 1 TABLET BY MOUTH AT FIRST SIGNS OF A YEAST INFECTIO N, TO BE REPEATED ONE WEEK LATER 2024 active Not Available Not Available Not Avai lable hydrocodo ne 5 mg-acetam inophen 325 mg tablet 05/21 completed Not Available Not Available Not Available meloxicam 15 mg tablet 05/21 completed Not Available Not Available Not Available phenazopy ridine 200 mg tablet TAKE 1 TABLET BY MOUTH 3 TIMES DAILY FOR 3 DAYS. 05/07 completed Not Available Not Available Not Available metronida zole 0.75 % (37.5 mg/5 gram) vaginal gel Insert 1 applicat orful twice a week by vaginal route for 2 days. 12/26 completed Not Available Not Available Not Available ondansetr on HCl 4 mg tablet 10/20 completed Not Available Not Available Not Available prednison e 20 mg tablet TAKE 1 TABLET BY MOUTH TWICE A DAY FOR 4 DAYS 05/15 completed Not Available Not Available Not Available terconazo le 0.8 % vaginal cream Insert 1 applicat orful every day by vaginal route at bedtime. 07/02 completed Not Available Not Available Not Available permethri n 5 % topical cream 05/21 completed Not Available Not Available Not Available clindamyc in HCl 150 mg capsule TAKE 3 CAPSULES (450 MG TOTAL) BY MOUTH 3 (THREE) TIMES A DAY FOR 10 DAYS 10/25 completed Not Available Not Available Not Available metronida zole 500 mg tablet TAKE 1 TABLET BY MOUTH TWICE A DAY FOR 7 DAYS active Not Available Not Available No t Available chlorthal idone 25 mg tablet TAKE 1 TABLET BY MOUTH EVERY DAY 04/01 completed Not Available Not Available Not Available amlodipin e 5 mg tablet TAKE 1 TABLET BY MOUTH EVERY DAY 2024 active Not Available Not Available Not Avai lable acyclovir 400 mg tablet TAKE 1 TABLET BY MOUTH TWICE A DAY 05/20 completed Not Available Not Available Not Available valacyclo vir 500 mg tablet Take 1 tablet twice a day by oral route as directed for 3 days. 05/21 completed Not Available Not Available Not Available ciproflox acin 500 mg tablet 12/26 completed Not Available Not Available Not Available tramadol 50 mg tablet 12/17 completed Not Available Not Available Not Available triamcino lone acetonide 0.1 % topical cream 10/20 completed Not Available Not Available Not Available amoxicill in 875 mg tablet 10/20 completed Not Available Not Available Not Available methocarb barbara 750 mg tablet 10/20 completed Not Available Not Available Not Available gentamici n 0.3 % eye drops 12/17 completed Not Available Not Available Not Available oxycodone -acetamin ophen 10 mg-325 mg tablet 10/20 completed ER Not Available Not Available Not Available meclizine 25 mg tablet 12/17 completed Not Available Not Available Not Available diazepam 2 mg tablet 05/21 completed Not Available Not Available Not Available phenazopy ridine 100 mg tablet 05/21 completed Not Available Not Available Not Available baclofen 10 mg tablet Take 1 tablet every day by oral route at bedtime for 30 days. 10/20 completed Not Available Not Available Not Available amlodipin e 10 mg tablet TAKE 1 TABLET BY MOUTH EVERY DAY 05/15 completed Not Available Not Available Not Available benzonata te 100 mg capsule TAKE 1 CAPSULE BY MOUTH THREE TIMES A DAY NEEDED FOR 10 DAYS 05/26 completed Not Available Not Available Not Available doxycycli ne monohydra te 100 mg capsule TAKE 1 CAPSULE BY MOUTH TWICE A DAY FOR 10 DAYS active Not Available Not Available No t Available cephalexi n 500 mg capsule TAKE 1 CAPSULE BY MOUTH TWICE A DAY active Not Available Not Available No t Available erythromy sunil 5 mg/gram (0.5 %) eye ointment 12/26 completed Not Available Not Available Not Available tobramyci n 0.3 % eye drops 12/17 completed Not Available Not Available Not Available nystatin 100,000 unit/gram topical cream 10/20 completed Not Available Not Available Not Available buspirone 10 mg tablet 10/20 completed Psychiat rist Not Available Not Available Not Available indometha sunil 50 mg capsule Take 1 capsule 3 times a day by oral route for 30 days. 10/20 completed Not Available Not Available Not Available hydroxyzi ne HCl 25 mg tablet 04/05 completed Not Available Not Available Not Available acyclovir 200 mg capsule 01/09 completed Not Available Not Available Not Available hydrochlo rothiazid e 25 mg tablet TAKE 1 TABLET BY MOUTH EVERY DAY active Not Available Not Available No t Available mupirocin 2 % topical ointment 10/20 completed Not Available Not Available Not Available norethind shirley acetate 5 mg tablet 08/29 completed Not Available Not Available Not Available ergocalci ferol (vitamin D2) 1,250 mcg (50,000 unit) capsule TAKE 1 CAPSULE BY MOUTH ONE TIME PER WEEK DIRECTED active Not Available Not Available No t Available hydroxych loroquine 200 mg tablet Take 1 tablet twice a day by oral route for 7 days. 12/17 completed Not Available Not Available Not Available Q-Tussin 100 mg/5 mL oral liquid 05/21 completed Not Available Not Available Not Available methylpre dnisolone 4 mg tablets in a dose pack TAKE 6 TABLETS ON DAY 1 DIRECTED ON PACKAGE AND DECREASE BY 1 TAB EACH DAY FOR A TOTAL OF 6 DAYS 05/26 completed Not Available Not Available Not Available albuterol sulfate HFA 90 mcg/actua tion aerosol inhaler INHALE 2 PUFFS BY MOUTH EVERY 4 HOURS NEEDED PATIEN T NEEDS TO SCHEDULE APPOINTM ENT active Not Available Not Available No t Available norethind shirley (contrace ptive) 0.35 mg tablet TAKE 1 TABLET BY MOUTH EVERY DAY 05/26 completed Not Available Not Available Not Available fluticaso ne propionat e 50 mcg/actua tion nasal spray,luann pension USE 1 SPRAY IN EACH NOSTRIL EVERY NIGHT BEFORE BED active Not Available Not Available No t Available sertralin e 50 mg tablet 10/26 completed Not Available Not Available Not Available doxycycli ne hyclate 100 mg tablet Take 1 tablet twice a day by oral route for 7 days. 12/17 completed Not Available Not Available Not Available loratadin e 10 mg tablet Take 1 tablet every day by oral route for 30 days. 10/26 completed Not Available Not Available Not Available naproxen 500 mg tablet TAKE 1 TABLET BY MOUTH 2 TIMES DAILY NEEDED FOR MODERATE OR MORE SEVERE PAIN. 05/15 completed Not Available Not Available Not Available amoxicill in 875 mg-potass ium clavulana te 125 mg tablet TAKE 1 TABLET BY MOUTH TWICE A DAY FOR 10 DAYS 12/17 completed Not Available Not Available Not Available amoxicill in 500 mg-potass ium clavulana te 125 mg tablet 01/09 completed Not Available Not Available Not Available buspirone 15 mg tablet 10/20 completed Not Available Not Available Not Available tobramyci n 0.3 %-dexamet hasone 0.1 % eye drops,luann pension 04/05 completed Not Available Not Available Not Available cyclobenz aprine 5 mg tablet 05/21 completed Not Available Not Available Not Available Microgest in 10/04 (21) 1 mg-20 mcg tablet TAKE ONE TABLET BY MOUTH DAILY 12/26 completed [employer] Supervisor Not Available Not Available Not Available (21) 1.5 mg-30 mcg tablet PLEASE SEE ATTACHED FOR DETAILED DIRECTIO NS 08/29 completed Not Available Not Available Not Available FE 10/04 (28) 1 mg-20 mcg (21)/75 mg (7) tablet TAKE 1 TABLET BY MOUTH EVERY DAY 12/26 completed duplicat e Not Available Not Available Not Available nitrofura ntoin monohydra te/macroc rystals 100 mg capsule TAKE 1 CAPSULE BY MOUTH TWICE DAILY FOR 7 DAYS active Not Available Not Available No t Available quetiapin e 50 mg tablet 10/25 completed Not Available Not Available Not Available Tri Femynor (28) 0.18 mg(7)/0.2 15 mg(7)/0.2 5 mg(7)-35 mcg tablet TAKE 1 TABLET BY MOUTH EVERY DAY 07/02 completed Not Available Not Available Not Available Ozempic 0.25 mg or 0.5 mg (2 mg/1.5 mL) subcutane ous pen injector Inject by subcutan eous route for 84 days. 08/14 completed Not Available Not Available Not Available Slynd 4 mg (28) tablet TAKE 1 EACH (4 MG TOTAL) BY MOUTH DAILY 05/26 completed Not Available Not Available Not Available Gina Fe 1.5/30 (28) 1.5 mg-30 mcg (21)/75 mg (7) tablet TAKE 1 TABLET BY MOUTH AT THE SAME TIME EVERY DAY TO PREVENT PREGNANC Y 05/26 completed Not Available Not Available Not Available Ozempic 1 mg/dose (4 mg/3 mL) subcutane ous pen injector INJECT 1MG UNDER THE SKIN ONCE A WEEK active Not Available Not Available No t Available Ozempic 0.25 mg or 0.5 mg (2 mg/3 mL) subcutane ous pen injector active Not Available Not Available Not Available Vitals Date Recorded Body height Body mass index (BMI) Body weight Oxygen saturation Oxygen saturation in Arterial blood by Pulse oximetry Respiratory rate Heart rate Body temperature Systolic And Diastolic Provider Name and Address Organization Details Last Updated DateTime 3 165.1 cm 36.3 kg/m2 74488.5 9 g 99 % 99 % 16 /min 75 /min 96.9 [degF] 136/91 mm[Hg] Dalia Montemayor [place] - [facility] 3 10:25:31 Date Recorded Body height Body temperature Respiratory rate Body mass index (BMI) Body weight Heart rate Systolic And Diastolic Provider Name and Address Organization Details Last Updated DateTime 4 165.1 cm 98.8 [degF] 16 /min 34.5 kg/m2 19949.3 7 g 91 /min 130/91 mm[Hg] Heri Johnson MA [place] - [facility] 4 16:48:48 Date Recorded Body height Body mass index (BMI) Body weight Systolic And Diastolic Provider Name and Address Organization Details Last Updated DateTime 07/01/2023 165.1 cm 35.9 kg/m2 45501.95 g 122/74 mm[Hg] Gila Tovar [facility] 07/01/2023 14:22:52 Date Recorded Body height Body mass index (BMI) Body weight Heart rate Systolic And Diastolic Provider Name and Address Organization Details Last Updated DateTime 07/31/2023 165.1 cm 35.7 kg/m2 79065.57 g 80 /min 123/84 mm[Hg] Polly Key MA [facility] 07/31/2023 14:58:21 Date Recorded Body height Body mass index (BMI) Body weight Systolic And Diastolic Provider Name and Address Organization Details Last Updated DateTime 08/29/2022 165.1 cm 35.1 kg/m2 96208.59 g 126/84 mm[Hg] Polly Key MA [facility] 08/29/2022 14:56:14 Social History Question Answer Notes LastModified by Organizat ion Details LastModified Time Tobacco Smoking Status Former Smoker [facility] 04/03/2021 17:20:32 Do You Have An Advance Directive? No Information not available 12/17/2021 Are You Blind Or Do You Have Difficulty Seeing? Yes Contact Information not available 12/17/2021 What Is Your Level Of Caffeine Consumption? None Information not available 12/17/2021 In The 14 Days Before Symptom Onset, Have You Had Close Contact With A Laboratory-confir med COVID-19 While That Case Was Ill? No Information not available 12/17/2021 In The 14 Days Before Symptom Onset, Have You Had Close Contact With A Person Who Is Under Investigation For COVID-19 While That Person Was Ill? No Information not available 12/17/2021 Have You Been To An Area Known To Be High Risk For COVID-19? No Information not available 12/17/2021 Are You Deaf Or Do You Have Serious Difficulty Hearing? No Information not available 12/17/2021 What Type Of Diet Are You Following? REGULAR Information not available 12/17/2021 Are There Any Guns Present In Your Home? No Information not available 12/17/2021 Live Alone Or With Others? With Others [email or web address] Information not available 09/27/2014 Do You Have A High School Diploma Or Higher Education? Yes Information not available 12/17/2021 Do You Sometimes Have To Miss Your Medical Appointments Due To Difficult Getting Transportation? No Information not available 12/17/2021 Do You Feel Unfairly Treated Due To Things Such As Race, Age, Gender, Disability Or Some Other Reason? No Information not available 12/17/2021 Do You Feel Physically And Emotionally Safe While Living At Home? Yes Information not available 12/17/2021 Do You Feel Physically And Emotionally Safe In Your Neighborhood Or Other Public Places? Yes Information not available 12/17/2021 Preferred Name Yohana pelaez Informatio n not available 12/17/2021 Sex Assigned At Female Information not available 08/04/2014 In School? No Information no t available 08/05/2014 Lives With With Kids Information no t available 08/05/2014 How Life Is Going Good Informa tion not available 08/05/2014 Life Going Well In General Yes Information not available 08/05/2014 Needs Help With Counseling/issues /referrals No Information not available 08/05/2014 Sexual Attraction Opposite Sex Infor mation not available 08/05/2014 Have You Ever Had Sex? Yes Information not available 08/05/2014 # Sex Partners Had 1 Information not available 08/05/2014 Teen No Information no t available 08/05/2014 Date Of Last Pap? 07/16/2013 Approx. Date Information not available 08/05/2014 Have You Ever Had A Pap Smear? Yes Information not available 08/05/2014 Current Gender Identity Female Information not available 08/04/2014 Marital Status Single Informatio n not available 08/05/2014 What Was The Date Of Your Most Recent Tobacco Screening? 05/26/2024 Information not available 05/26/2024 How Many Children Do You Have? 2 Information not available 08/05/2014 What Is Your Current Pack Years? 10packyears Information not available 12/17/2021 What Is Your Relationship Status? Single Information not available 12/17/2021 Do You Use Your Seat Belt Or Car Seat Routinely? Yes Information not available 12/17/2021 Are You Sexually Active? No Information not available 12/17/2021 Do You Have Smoke And Carbon Monoxide Detectors In Your Home? Yes Information not available 12/17/2021 At What Age Did You Start Smoking Tobacco? 18 Information not available 12/17/2021 Are You Passively Exposed To Smoke? No Information no t available 12/17/2021 How Much Tobacco Do You Smoke? No Information not available 12/27/2019 Do You Use Sunscreen Routinely? No Information not available 12/17/2021 Has Tobacco Cessation Counseling Been Provided? No Information not available 05/15/2023 On What Date Was Tobacco Cessation Counseling Provided? 05/26/2024 Information not available 05/26/2024 How Many Years Have You Smoked Tobacco? 7 Information not available 12/27/2019 Sex: Female Functional Status Question Answer Note LastModified by Organizat ion Details LastModified Time Do you use any illicit or recreational drugs? No Information not available 12/17/2021 Do you or have you ever used any other forms of tobacco or nicotine? No [email or web address] Information not available 04/03/2021 What is your level of alcohol consumption? Occasional Information not available 08/05/2014 Do you or have you ever used smokeless tobacco? Never used smokeless tobacco Information not available 12/27/2019 Are you currently employed? Yes Information not available 12/17/2021 Are you able to care for yourself independently? 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 Never used electronic cigarettes Information not available 12/27/2019 What is your exercise level? Occasional Information not available 12/17/2021 Mental Status Question Answer Note LastModified by Organization D etails LastModified Time Do you feel stressed (tense, restless, nervous, or anxious, or unable to sleep at night)? [id number] Information not available 12/17/2021 Family History Relationship Description Onset Age of this Age Resolved Age Notes LastModified by Organization Details LastModified Time Mother Allergy Not available 09/25/2015 09:22:06 Mother Asthma Not available 09/25/2015 09:22:06 Mother Diabetes mellitus [email or web address] Not available 2015 09:22:06 Mother Hypertensive disorder [email or web address] Not available 2015 09:22:06 Maternal Uncle 53 [email or web address] Not available 020 10:19:05 Maternal Grandfather 78 [email or web address] Not available 03/2020 10:19:13 Maternal Aunt 50 Pneumo jaycee COVID [email or web address] Not available 12/17/2021 17:01:34 Notes:No changes reported 07/05, 05/15/23, 05/26/24 Medical History Condition Response Asthma Y Allergies Y Gynecological History Statement/Question Response Flow Moderate Date of LMP 07/16/2023 Menses Monthly Y STIs/STDs Y Date of Last Pap Smear 10/20/2019 Duration of Flow (days) 5 Age at Menarche 13 Current Control Method BCPs Age at First Child 20 LMP Approximate Obstetrics History GPAL:G 2 P 2 0 0 2 Type Value Full Term 2 Living 2 Total 2 Past Encounters Encounter ID Performer Location Encounter Start Date Encounter Closed Date Diagnosis/Indication Diagnosis SNOMED-CT Code Diagnosis ICD10 Code Diagnosis IMO Codes Diagnosis Note [id number] Cleo Phillips-TIFFANIE Cornelius-SERAFIN Shook ([facility]) [address] [facility] [address] 08/05/2014 09:59:31 08/05/2014 11:33:52 Bacterial vaginosis [id number] MD Bo[place] Cuevas ([place] [address]) [address] [place] [address] 09/27/2014 15:28:10 09/28/2014 11:57:36 Menorrhagia 372943231 patient will receive a sufficient number of refills to last until her annual exam with Dr Dai in January. Genital he rpes simplex 12928622 Patient desires a refill for Valtrex in the event of an outbreak [id number] MD Bo[place] Grace ([place] [address]) [address] [place] [address] 03/16/2015 09:19:47 03/21/2015 16:14:06 Uterine leiomyoma 01706399 Uses contraception 06599437 [id number] MD Bo[place] Brown ([place] [address]) [address] [place] [address] 09/25/2015 09:16:10 09/25/2015 10:13:06 Vaginal discharge 234088586 N89.8 Uterine leiomyoma 540954 05 D25.9 Gynecologi c examination 16754578 Z01.419 [id number] MD [place] Brown ([place] [address]) [address] [place] [address] 11/13/2015 15:35:53 11/14/2015 18:04:34 Sexually transmitted infectious disease 7173252 A64 [id number] LOPEZ Vázquez ([place] [address]) [address] [facility] [place] [address] 08/29/2016 15:58:38 09/03/2016 13:56:42 Contraception care 988568238 Z30.40 Genital he rpes simplex 59359895 A60.9 Fatigue 13353234 R53.83 Uterine leiomyoma 356595 05 D25.9 [id number] LOPEZ Vázquez ([place] [address]) [address] [facility] [place] [address] 01/09/2017 10:35:00 01/14/2017 10:12:37 Gynecologic examination 36951398 Z01.419 Vaginal discharge 005559 006 N89.8 Genital he rpes simplex 97653421 A60.9 Contraception care 95933 5005 Z30.40 [id number] VIVIENNE Vázquez [facility] ([address] [address]) [address] [place] [address] 02/11/2017 10:01:09 02/11/2017 11:56:15 Vaginal discharge 527949480 N89.8 Uterine leiomyoma 901429 05 D25.9 [id number] Phuc Guillory MD [facility] ([facility]) [address] [place] [address] 05/21/2017 14:23:16 05/29/2017 03:46:27 [id number] Bill Rae MD [facility] [address] [place] [address] 05/28/2017 15:25:04 05/30/2017 11:16:38 Low back pain 537955249 M54.5 Pain of wrist region 566 28753 M25.619 [id number] [facility] [address] [facility] [facility] [address] [place] [address] 09/07/2018 10:55:34 09/10/2018 09:12:22 Venereal disease screening 353255746 Z11.3 Contracept ion care management 373591106 Z30.9 Uses oral contraception 3061448 Z30.41 Vaginal discharge 401880 006 N89.8 for recurrent bv Genital he rpes simplex 36410355 A60.9 [id number] LOPEZ Vázquez [place] [address] OB [address] [facility] [address] [place] [address] 10/20/2019 09:28:11 10/21/2019 11:08:30 Gynecologic examination 22367000 Z01.419 1. Counseled regarding prevention of STD's , condom use and prevention . 2. Counseled regarding contracept kalia options, risk factors and side effects. 3. Advised avoidance of tobacco, alcohol, and drugs . 4. Counseled regarding folic acid supplement ation, calcium needs and prevention of osteoporos is . 5. BSE reviewed and recommende d. 6. Follow up in one year or sooner if needed. Pain in pelvis [id number] R10.2 Will order pelvic ultrasound . Pt advised on treatment options for ovarian cysts and fibroids including but not limited to control use. Pt educated on other causes of pelvic pain included but not limited to constipati on or bladder issues. Pt verbalized understand ing. Will follow up pending results. [facility] [id number] Z30.9 1. Reviewed all forms of control with patient including risk factors and side effects. 2. Counseled on STD transmissi on and prevention , condom use and prevention . 3. Pt would like to continue with OCP. Educated on correct use and side effects. Will send rx to pharmacy. 4. Follow up for med check in 12 months, sooner if needed. Candidiasis of vagina 72 098231 B37.3 [id number] MD Boone Kendrick 14 OB [address] [facility] [place] [address] 12/22/2019 10:15:38 12/23/2019 10:23:49 Uterine leiomyoma 68050064 D25.9 [id number] MD Boone Valdes 14 IM [address] [facility] [place] [address] 12/27/2019 09:08:30 12/28/2019 13:49:42 Dyspnea 024589495 R06.00 Seasonal a llergic rhinitis 286230405 J30.2 [id number] MD Boone Valdes 14 IM [address] [facility] [place] [address] 03/21/2020 09:25:38 03/22/2020 20:05:08 Family grieving 562289638 Z63.8 [id number] MD Boone Valdes 14 IM [address] [facility] [place] [address] 04/05/2020 08:27:17 04/11/2020 15:31:03 Essential hypertension 44601244 I10 Obesity 475345067 E66.9 [id number] Laurita Medellin AP[employer]S SYSTEMS ANALYST- Boone 14 OB [address] [facility] [place] [address] 2020 15:30:28 05/04/2020 10:07:37 Vaginal discharge 611260669 N89.8 Meds sent to pharmacy. Counseled on bv/yeast prevention and treatment. Will call office back if treatment does not help with symptoms. Pt verbalized understand ing. [id number] [facility] Boone 14 OB [address] [facility] [place] [address] 06/08/2020 11:52:41 06/09/2020 12:18:10 Uterine leiomyoma 91059257 D25.9 Will follow up with second opinion, does not want to return to Dr. Wren. [id number] MD Boone Valdes 14 [address] [facility] [place] [address] 10/25/2020 17:19:16 10/27/2020 15:28:41 Essential hypertension 22821686 I10 [id number] LOPEZ Vázquez 14 OB [address] [facility] [place] [address] 04/03/2021 17:09:49 04/05/2021 06:56:03 Contraception care management 920800149 Z30.9 1. Reviewed all forms of control with patient including risk factors and side effects. 2. Counseled on STD transmissi on and prevention , condom use and prevention . 3. Pt would like to continue with OCP. Educated on correct use and side effects. Will send rx to pharmacy. 4. Follow up for med check in 12 months, sooner if needed. [id number] MD Boone Valdes 14 [address] [facility] [place] [address] 12/17/2021 16:45:04 12/18/2021 14:55:22 Essential hypertension 55744365 I10 Prediabetes 007907687 R7 3.03 Asthma 446697588 J45.90 9 History of SARS-CoV-2 29 89200212 16919238 Z86.16 [id number] [facility] Boone 14 OB [address] [facility] [place] [address] 01/03/2022 15:14:03 01/04/2022 06:31:09 Gynecologic examination 09187188 Z01.419 1. Counseled regarding prevention of STD's , condom use and prevention . 2. Counseled regarding contracept kalia options, risk factors and side effects. 3. Advised avoidance of tobacco, alcohol, and drugs . 4. Counseled regarding folic acid supplement ation, calcium needs and prevention of osteoporos is . 5. BSE reviewed and recommende d. 6. Follow up in one year or sooner if needed. Vaginal irritation 19296 6004 N89.8 Nuswab done and sent to lab. Counseled on STD prevention and condom use. Counseled on yeast and BV prevention . Will follow up pending lab results. [facility] ion care management [id number] Z30.9 1. Reviewed all forms of control with patient including risk factors and side effects. 2. Counseled on STD transmissi on and prevention , condom use and prevention . 3. Pt would like to continue with OCP. Educated on correct use and side effects. Will send rx to pharmacy. 4. Follow up for med check in 12 months, sooner if needed. [id number] Laurita Medellin, [facility] Boone 14 OB [address] [facility] [place] [address] 08/29/2022 14:38:52 08/30/2022 10:29:31 Menorrhagia 308447054 N92.0 Will order pelvic ultrasound . Pt advised on treatment options for fibroids, if found on u/s including but not limited to control use. Pt educated on other causes of menorraghi a including but not limited to constipati on or bladder issues, hormone imbalances , stress, menopausal symptoms. Pt verbalized understand ing. Will follow up pending results. Vaginal discharge 668223 006 N89.8 Meds sent to pharmacy. Counseled on bv/yeast prevention and treatment. Will call office back if treatment does not help with symptoms. Pt verbalized understand ing. [id number] MD Boone Valdes 14 IM [address] [facility] [place] [address] 05/15/2023 10:19:46 05/16/2023 15:56:46 Obesity 652839262 E66.9 Prediabetes 118620335 R7 3.03 Type 2 anita betes mellitus 28437747 E11.9 Essential hypertension 95974774 I10 Vitamin D deficiency 347 58300 E55.9 Asthma 486503138 J45.90 9 [id number] MD Boone Kendrick 14 OB [address] [facility] [place] [address] 07/01/2023 14:15:05 07/02/2023 11:54:52 Bilateral discharge from nipples [id number] N64.52 [id number] KUNAL Vázquez-SERAFIN Shook 14 OB [address] [facility] [place] [address] 07/31/2023 14:46:45 08/01/2023 12:12:52 Menorrhagia 563702747 N92.0 Pt advised on treatment options for fibroids, if found on u/s including but not limited to control use. Pt educated on other causes of menorraghi a including but not limited to constipati on or bladder issues, hormone imbalances , stress, menopausal symptoms. Pt verbalized understand ing. Will follow up pending results. Uterine leiomyoma 567559 05 D25.9 Will follow up with referral to [facility]. [id number] MD Boone Valdes 14 IM [address] [facility] [place] [address] 05/26/2024 16:37:37 06/01/2024 09:49:39 Overweight 495858279 E66.3 Immunizati on status unknown 395490013 Z76.89 Vitamin D deficiency 347 93027 E55.9 Health Concerns Section Related Observation LastModified by Organization Detai ls LastModified Time None Recorded Concern Status LastModified by Organization Details LastModified Time None Recorded Advance Directives Directive N: Payers Insurance Date Sequence Insurance Name Policy Number Policy Moran Covered Member ID Moran Member ID Guarantor Name 05/26/2024 1 [facility] - DOS ON OR AFTER 21 (MEDICAID REPLACEMENT - HMO) Truongise Nanci [id number] Truongise Nanci 04/11/2025 1 [facility] - DOS ON OR AFTER 21 (MEDICAID REPLACEMENT - HMO) Jamise Nanci [id number] Jamise Nanci 05/26/2024 1 [facility] - DOS PRIOR TO 2021 (MEDICAID REPLACEMENT - HMO) Jamise Nanci [id number] Jamise Nanci 05/26/2024 1 [facility] (MEDICAID HMO) Truongise Nanci [id number] Truongise Nanci 06/20/2025 1 [place] [id number] Yohana Christine [id number] Yohana Christine 05/26/2024 1 [place] [facility] PUBLIC AID Yohana Christine [id number] Yohana Christine Notes Date Note Type Note Provider Name and Address Organization Details Recorded Time 08/29/20 22 text/ht ml Annual GYNReported by PatientGenitourinary symptomsFor menstrual cycle, patient reportsmenorrhagiaandirregular cycle intervals. For urinary symptoms, patient reportsno hematuriaandno incontinence. For vulva, patient reportsno genital lesion.Breast symptomsFor breast, patient reportsno breast pain,no breast lump, andno nipple discharge.ContraceptionFor current contraception, patient reportswants to discuss contraceptive options.Endocrine symptomsFor sexual complaints, patient reportsno sexual complaints,no pain during intercourse, andnormal libido. For menopausal symptoms, patient reportsno menopausal symptomsandnormal vaginal lubrication.Psychological symptomsFor psychological symptoms, patient reportsno depression,no anxiety, andno pmdd.Preventative measuresFor preventive measures, patient reportsencourage self breast examination,encourage regular exercise,encourage no tobacco use,encourage regular mammograms starting age 40, andfollowed with q3 year pap smear and high risk hpv typing.ROS as noted in the HPI 37 yo fe here for heavy bleeding, seeing [facility]- pt wants to go back on control, explained to patient the risk of blood clots, stroke with ocp use and age/htn- last pap wnl 10/20/19- hx asthma, uterine fibroids- seeing [facility]- does not like the ocp they put her on, states her bleeding is worse, is due for follow up ultrasound and office visit with specialist KUNAL Vázquez- Attn: Accounting, [address] [facility], [place], [address], [facility] - [facility] 08/29/2022 15:19:55 05/15/20 23 text/ht ml ROS as noted in the HPI Per intake note. Bill Rae MD Attn: Accounting, [address] [place], [address], [place] - [facility] 05/20/2023 12:01:34 07/01/20 23 text/ht ml a few months of bilateral nipple discharge recently off OCPs for period control due to possible BP issues. Braden Wren, MD Attn: Accounting, [address] [facility], [place], [address], [place] [facility] 07/01/2023 14:38:45 07/31/20 23 text/ht ml Annual GYNReported by PatientGenitourinary symptomsFor menstrual cycle, patient reportsmenorrhagiaandirregular cycle intervals. For urinary symptoms, patient reportsno hematuriaandno incontinence. For vulva, patient reportsno genital lesion.Breast symptomsFor breast, patient reportsno breast pain,no breast lump, andno nipple discharge.ContraceptionFor current contraception, patient reportswants to discuss contraceptive options.Endocrine symptomsFor sexual complaints, patient reportsno sexual complaints,no pain during intercourse, andnormal libido. For menopausal symptoms, patient reportsno menopausal symptomsandnormal vaginal lubrication.Psychological symptomsFor psychological symptoms, patient reportsno depression,no anxiety, andno pmdd.Preventative measuresFor preventive measures, patient reportsencourage self breast examination,encourage regular exercise,encourage no tobacco use,encourage regular mammograms starting age 40, andfollowed with q3 year pap smear and high risk hpv typing.ROS as noted in the HPI 38 yo fe here for heavy bleeding, was seeing [facility], would like referral to go back- normal mammogram 07/04/23- last pap wnl 10/20/19- hx asthma, uterine fibroids Laurita Medellin [facility]- Attn: Accounting, [address] [facility], [place], [address], [place] 07/31/2023 15:30:36 05/26/20 24 text/ht ml ROS as noted in the HPI Pt has begun a new job and is concerned about certain lab results. Bill Rae MD Attn: Accounting, [address] [facility], [place], [address], [place] [facility] 05/31/2024 10:14:51 OBGyn Episode No OBEpisode recorded.
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
--- OUTSIDE RECORDS SUMMARY | 2025-07-26 10:31 | XMS_ITS | Encounter Summary ---
Author Organization [facility] Healthcare Address [address] [place] [address] Care Team Providers Care Solar Energy Technician Name Role Phone Bill Ackerman MD Primary Care Provider [phone] Encounter Details Date Type Department Care Team (Late st Contact Info) Description 11/02/2020 Telephone [facility] [address] [place], [place] [id number] Leon Lindquist MD [address] [facility] [address] [place], [place] [id number] Social History Tobacco Use Types Packs/Day Years Used Date Smoking Tobacco: Former Cigarettes Smokeless Tobacco: Never Alcohol Use Standard Drinks/Week Comments Yes 0 (1 standard drink = 0.6 oz pur e alcohol) socially Comments No Sex and Gender Information Value Date Recorded Sex Assigned at Not on file Legal Sex Female 8:01 PM CLOTH BRUSHING AND SUEDING SUPERVISOR Gender Identity Not on file Sexual Orientation Not on file documented as of this encounter Plan of Treatment Not on file documented as of this encounter Visit Diagnoses Not on filedocumented in this encounter Additional Health Concerns Infection Onset Date Last Indicated Resolved Time COVID: Suspected 08/23/2021 08/23/2021 08/23/2021 10:16 AM CLOTH BRUSHING AND SUEDING SUPERVISOR COVID: Suspected 08/28/2021 08/28/2021 08/28/2021 4:06 PM CLOTH BRUSHING AND SUEDING SUPERVISOR COVID19 08/28/2021 08/28/2021 09/11/2021 3:05 AM CLOTH BRUSHING AND SUEDING SUPERVISOR COVID: Recovered Comment:Added based on recent COVID infection. 09/11/2021 10/20/2021 01/09/2022 3:05 AM C DT COVID: Suspected 11/22/2021 11/22/2021 11/22/2021 11:47 AM CLOTH BRUSHING AND SUEDING SUPERVISOR COVID: Suspected 11/22/2021 11/22/2021 11/22/2021 11:49 AM CLOTH BRUSHING AND SUEDING SUPERVISOR COVID: Suspected 01/21/2022 01/21/2022 01/21/2022 10:34 AM CDT COVID: Suspected 06/18/2022 06/18/2022 06/18/2022 11:31 AM CDT COVID: Suspected 10/08/2022 10/08/2022 10/08/2022 12:16 PM CLOTH BRUSHING AND SUEDING SUPERVISOR COVID: Suspected 10/23/2022 10/23/2022 10/23/2022 5:36 AM CLOTH BRUSHING AND SUEDING SUPERVISOR COVID: Suspected 11/30/2022 11/30/2022 11/30/2022 5:18 AM CDT COVID: Suspected 06/03/2023 06/03/2023 06/03/2023 9:57 AM CDT documented as of this encounter Care Teams Solar Energy Technician Relationship Specialty Start Date End Date Bill Ackerman MD PCP - General 07/31/17 documented as of this encounter
--- OUTSIDE RECORDS SUMMARY | 2025-07-26 10:31 | XMS_ITS | Encounter Summary ---
Author Organization [facility] Address [address] [place] [address] Phone Care Team Providers Care A P Mechanic Name Role Phone Bill Ackerman MD Primary Care Provider [phone] Encounter Details Date Type Department Care Team (Late st Contact Info) Description 03/17/2024 Lab Requisition [facility] [address] [place] [id number] System, Referring Not In [place] Social History Tobacco Use Types Packs/Day Years Used Date Smoking Tobacco: Former Smokeless Tobacco: Never Alcohol Use Standard Drinks/Week Comments Yes 0 (1 standard drink = 0.6 oz pur e alcohol) ONCE A MONTH Sexually Active Control Partners Comments Yes Condom Comments No Sex and Gender Information Value Date Recorded Sex Assigned at Not on file Legal 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 Gender Identity Not on file Sexual Orientation Not on file documented as of this encounter Plan of Treatment Not on file documented as of this encounter Procedures Procedure Name Priority Date/Time Associated Diagnosis Comments QUANTIFERON-TB GOLD PLUS Routine 03/17/2024 12:25 PM CDT MMRV PANEL Routine 03/17/2024 12:25 PM CDT MUMPS IGG Routine 03/17/2024 12:25 PM CDT HERPES ZOSTER (VARICELLA) IGG Routine 03/17/2024 12:25 PM CDT RUBEOLA (MEASLES) IGG Routine 03/17/2024 12:25 PM CDT RUBELLA IMMUNITY IGG Routine 03/17/2024 12:25 PM CDT HEPATITIS B SURFACE ANTIBODY (HBSAB) Routine 03/17/2024 12:25 PM CDT documented in this encounter Results * HERPES ZOSTER (VARICELLA) IGG (03/17/2024 12:25 PM CDT) VARICELLA ZOSTER IGG 2.7 >=1.1 AI 03/17/2024 9:[address] [facility] Blood Venipuncture / Unknown 03/17/2024 12:25 PM CDT 03/17/2024 12:[address] [facility] - 03/17/2024 9:38 PM CDT <= 0.8 Negative. No detectable VZV IgG antibody. 0.9 - 1.0 Equivocal >=1.1 Positive Antibody testing was performed by multiplex flow immunoassay on the BioPlex platform. us Referring Not In System IMMUNOLOGY ORDERABLES Fi nal Result Performing Organization Address City/State/[facility] Co de Phone Number [facility] [address] [place] [address], * RUBEOLA (MEASLES) IGG (03/17/2024 12:25 PM CDT) MEASLES AB IGG 1.7 >=1.1 AI 03/17/2024 9:[address] [facility] Blood Venipuncture / Unknown 03/17/2024 12:25 PM CDT 03/17/2024 12:[address] [facility] - 03/17/2024 9:38 PM CDT <= 0.8 Negative. No detectable Measles IgG antibody. 0.9 - 1.0 Equivocal >=1.1 Positive Antibody testing was performed by multiplex flow immunoassay on the BioPlex platform. us Referring Not In System IMMUNOLOGY ORDERABLES Fi nal Result Performing Organization Address City/[facility] Co de Phone Number [facility] [address] [place] [address], [place] * RUBELLA IMMUNITY IGG (03/17/2024 12:25 PM CDT) RUBELLA IMMUNITY Immune Immune, Invalid 03/17/2024 9:[address] [facility] Blood Venipuncture / Unknown 03/17/2024 12:25 PM CDT 03/17/2024 12:[address] [facility] - 03/17/2024 9:38 PM CDT Antibody testing was performed by multiplex flow immunoassay on the BioPlex platform. us Referring Not In System CHEMISTRY ORDERABLES Fin al Result Performing Organization Address [facility] Co de Phone Number [facility] [address] [place] [address], [place] * MUMPS IGG (03/17/2024 12:25 PM CDT) Pathologist [facility] Mumps Ab IgG 1.4 >=1.1 AI 03/17/2024 9:[address] [facility] Blood Venipuncture / Unknown 03/17/2024 12:25 PM CDT 03/17/2024 12:[address] [facility] - 03/17/2024 9:38 PM CDT <= 0.8 Negative. No detectable Mumps IgG antibody. 0.9 - 1.0 Equivocal >=1.1 Positive Antibody testing was performed by multiplex flow immunoassay on the BioPlex platform. us Referring Not In System IMMUNOLOGY ORDERABLES Fi nal Result Performing Organization Address City/[facility] Co de Phone Number [facility] [address] [place] [address], [place] * QUANTIFERON-TB GOLD PLUS (03/17/2024 12:25 PM CDT) NIL CONTROL 0.02 <8.01 IU/mL 03/19/2024 9:[address] [facility] TB ANTIGEN 1 0.07 <0.35 IU/mL 03/19/2024 9:[address] [facility] TB ANTIGEN 2 0.03 <0.35 IU/mL 03/19/2024 9:[address] [facility] MITOGEN CONTROL 9.98 >0.49 IU/mL 03/19/20 9:[address] [facility] INTEPRETATION TB NEGATIVE NEGATIVE, NEGATIVE (TB antigen response less than 25% of internal negative control value) 03/19/2024 9:[address] [facility] Comment:No immune response t o Mycobacterium tuberculosis antigens was noted. M. tuberculosis infection unlikely. Blood Venipuncture / Unknown 03/17/2024 12:25 PM CDT 03/17/2024 12:[address] [facility] - 03/19/2024 9:42 AM CDT A POSITIVE QUANTIFERON-TB GOLD PLUS RESULT SHOULD NOT BE THE SOLE OR DEFINITIVE BASIS FOR DETERMINING INFECTION WITH M.TUBERCULOSIS. Diagnosing or excluding tuberculosis disease, and assessing the probability of LTBI, requires a combination of epidemiological, historical, medical and diagnostic findings (e.g., acid fast bacilli (AFB) smear and culture, chest xray) that should be taken into account when interpreting QFT-Plus results. Furthermore, the magnitude of the measured gamma interferon level cannot be correlated to stage or degree of infection, level of immune responsiveness, or likelihood for progression to active disease. The Nil control adjusts for background (e.g., elevated levels of circulating gamma interferon or presence of heterophile antibodies). The Mitogen control serves as an internal positive control and verifies each specimen tested can produce a gamma interferon response. Low mitogen may occur with insufficient lymphocytes, reduced lymphocyte activity due to improper specimen handling, filling/mixing of the mitogen tube, or inability of the patient's lymphocytes to generate gamma interferon. Infection with other Mycobacteria, including M. kansasii, M. szulgai, and M. marinum, may cause false positive results. A negative QuantiFERON-TB Gold Plus result does not preclude the possibility of M. tuberculosis infection or tuberculosis disease: false negative results can be due to incorrect blood sample collection/ improper handling of the specimen, stage of infection (e.g., specimen obtained prior to the development of cellular immune response), co-morbid conditions which affect immune function, or other individual immunological factors. The minimum number of lymphocytes required for a reliable test has not been established and may also be variable. Diagnostic testing for Mycobacterium tuberculosis using Interferon Gamma Release Assays should follow applicable published guidelines, including when testing in populations such as children, women, and HIV-infected or otherwise immunocompromised individuals. https://www.cdc.gov/tb/publications/guidelines/testing.htm us Referring Not In System IMMUNOLOGY ORDERABLES Fi nal Result Performing Organization Address [facility] Co de Phone Number [facility] [address] [place] [address], * HEPATITIS B SURFACE ANTIBODY (HBSAB) (03/17/2024 12:25 PM CDT) HEPATITIS B SURFACE ANTIBODY 66.23 mIU/mL 03/17/2024 9:[address] [facility] Comment: Detected Range: >12.00 Individual is considered immune to HBV infection Blood Venipuncture / Unknown 03/17/2024 12:25 PM CDT 03/17/2024 12:25 PM CDT us Referring Not In System CHEMISTRY ORDERABLES Fin al Result Performing Organization Address [facility] Co de Phone Number [facility] [address] [place] [address], documented in this encounter Visit Diagnoses Not on filedocumented in this encounter Additional Health Concerns Infection Onset Date Last Indicated Resolved Time COVID - 19 11/17/2024 11/17/2024 11/18/2024 12:1 0 AM AUTO DAMAGE ADJUSTER Influenza 11/17/2024 11/17/2024 11/24/2024 12:1 6 AM CDT documented as of this encounter Care Teams A P Mechanic Relationship Specialty Start Date End Date Bill Ackerman MD [address] [facility] [place] [address] PCP - General Family Medicine 05/21/17 documented as of this encounter
--- OUTSIDE RECORDS SUMMARY | 2025-07-26 10:31 | XMS_ITS | Clinical Summary ---
Author Organization [facility] Address [address] [place] [address] Care Team Providers Care Measurement Analyst Name Role Phone Unavailable Primary Care Provider Unavailabl e Source Comments [facility],non-owned Affiliates and Associated Physician Practices is amultiple site organization consisting of ambulatory clinics and hospital sitesin [place], [place], [place] and [place]. This disclosure is being madepursuant to the Care Everywhere program and may not contain all information available regarding this patient. Last updated 18.[facility] [place]ooop Allergies Active Allergy Reactions Criticality Noted Date Comments Peanut-Derived Anaphylaxis High 05/22/2016 Pseudoephedrine Base Rash Medium 05/22/2016 Hydrocodone-Acetaminophen Rash Medium 05/22/2016 Medications * Be aware that medications may not be up to date on this document. Alwaysverify current medications with the patient. norethindrone-et hinyl estradiol (MICROGESTIN) 1-20 MG-MCG tabletIndication s:Encounter for medication counseling Take 1 Tab by mouth once daily Active ALBUTEROL IN Active norethindrone-et hinyl estradiol (MICROGESTIN) 1-20 MG-MCG tablet Take 1 Tab by mouth once daily 1 Packet 0 05/22/2016 Active Social History Tobacco Use Types Packs/Day Years Used Date Smoking Tobacco: Never Assessed Comments Unknown Sex and Gender Information Value Date Recorded Sex Assigned at Not on file Legal Sex Female 8:40 AM CDT Gender Identity Not on file Sexual Orientation Not on file Last Filed Vital Signs Vital Sign Reading Time Taken Comments Blood Pressure 124/76 05/22/2016 12:38 PM CDT Pulse 61 05/22/2016 12:38 PM CDT Temperature 37 C (98.6 F) 05/22/2016 12:38 PM CDT Respiratory Rate - - Oxygen Saturation - - Inhaled Oxygen Concentration - - Weight 95.3 kg (210 lb) 05/22/2016 12:38 PM CDT Height 165.1 cm (5' 5) 05/22/2016 12:38 PM CDT Body Mass Index 34.95 05/22/2016 12:38 PM CDT Plan of Treatment Health Maintenance Due Date Last Done Comments HIV SCREENING 2002 HEPATITIS C SCREENING 04/28/2005 DTAP/TDAP/TD VACCINES (1 - Tdap) 2006 HEPATITIS B VACCINE (1 of 3 - 19+ 3-dose series) 2006 PAP SMEAR 2008 HPV VACCINE (1 - 3-dose SCDM series) 2014 DEPRESSION SCREENING 09/15/2024 COVID-19 VACCINE (1 - 2023-2 5 season) 2025 INFLUENZA VACCINE (#1) 2025 ZOSTER VACCINE (1 of 2) 2037 HIB VACCINE Aged Out No longer eligi ble based on patient's age to complete this topic MENINGOCOCCAL (Group B) VACC INE SHARED DECISION-MAKING Aged Out No longer eligibl e based on patient's age to complete this topic MENINGOCOCCAL GROUPS A/C/Y/W VACCINE Aged Out No longer eligible b ased on patient's age to complete this topic PNEUMOCOCCAL VACCINE Aged Out No long er eligible based on patient's age to complete this topic Insurance MEDICAID - OUT OF STATE Member Subscriber Plan / Payer (Ef fective for All Dates) Name:Yohana Christine Relation to Subscriber:Self Name:YOHANA CHRISTINE Payer ID:Not on file Group ID:Not on file Type:Medicaid Address: [address] [employer] [place]
--- OUTSIDE RECORDS SUMMARY | 2025-07-26 10:31 | XMS_ITS | Encounter Summary ---
Author Organization [facility] Healthcare Address [address] [place] [address] Care Team Providers Care Software Performance Engineer Name Role Phone Bill Ackerman MD Primary Care Provider [phone] Encounter Details Date Type Department Care Team (Late st Contact Info) Description 11/02/2019 Telephone [facility] [address] [place], [place] [id number] Laurita Fuentes, [employer] [address] [place] [address] [place] [address] Social History Tobacco Use Types Packs/Day Years Used Date Smoking Tobacco: Former Cigarettes Smokeless Tobacco: Never Alcohol Use Standard Drinks/Week Comments Yes 0 (1 standard drink = 0.6 oz pur e alcohol) socially Comments No Sex and Gender Information Value Date Recorded Sex Assigned at Not on file Legal Sex Female 8:01 PM 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 09/11/2021 10/20/2021 01/09/2022 3:05 AM C DT COVID: Suspected 11/22/2021 11/22/2021 11/22/2021 11:47 AM CLINICAL MANAGER HOME CARE COVID: Suspected 11/22/2021 11/22/2021 11/22/2021 11:49 AM CLINICAL MANAGER HOME CARE COVID: Suspected 01/21/2022 01/21/2022 01/21/2022 10:34 AM CDT COVID: Suspected 06/18/2022 06/18/2022 06/18/2022 11:31 AM CDT COVID: Suspected 10/08/2022 10/08/2022 10/08/2022 12:16 PM CLINICAL MANAGER HOME CARE COVID: Suspected 10/23/2022 10/23/2022 10/23/2022 5:36 AM CLINICAL MANAGER HOME CARE COVID: Suspected 11/30/2022 11/30/2022 11/30/2022 5:18 AM CDT COVID: Suspected 06/03/2023 06/03/2023 06/03/2023 9:57 AM CDT documented as of this encounter Care Teams Software Performance Engineer Relationship Specialty Start Date End Date Bill Ackerman MD PCP - General 07/31/17 documented as of this encounter
[2025-07-26 10:52] LABS: EDUAAPPEAR Cloudy; EDUABILI Negative (Negative); EDUABLOOD 1+ (Negative); EDUACOLOR1 Dark; EDUAGLUCOSE Negative (Negative); EDUAKETONE Negative (Negative); EDUALEUKO 1+ (Negative); EDUANITRATE Negative (Negative); EDUAPH 7.0; EDUAPROTEIN 1+ (Negative); EDUASPGRAVITY 1.030; EDUAUROBILI 1.0
--- NOTE | 2025-07-26 11:37 | ED.FEMALEGU ---
HPI - Female Genitourinary General Chief complaint: Urogenital-Female Stated complaint: UTI Time Seen by Provider: 07/26/25 10:30 Source: patient and RN notes reviewed Mode of arrival: ambulatory Limitations: no limitations History of Present Illness HPI Narrative: 40-year-old female presents Express Care complaining of urinary symptoms for 2-3 days. Patient reports having dysuria, increased frequency, hesitancy. Patient denies any fevers, abdominal pain, body aches, chills, nausea, vomiting, diarrhea, hematuria, flank pain, vaginal bleeding, vaginal discharge. Patient has not taken anything hlij-fgr-mxezmeo for symptoms. Patient denies any significant past medical history. Related Data Home Medications ?Medication ?Instructions ?Recorded ?Confirmed ?Last Taken ?Type norethindrone acetate 1.5 1 tablet PO DAILY 11/28/20 08/06/21 Unknown History mg-ethinyl estradiol 30 mcg tablet (Junel) amlodipine 5 mg tablet mg 07/26/25 Unknown History semaglutide 1 mg/dose (4 mg/3 mL) mg subcut 07/26/25 Unknown History subcutaneous pen injector (Ozempic) Allergies Allergy/AdvReac Type Severity Reaction Status Date / Time hydrocodone (From Vicodin) Allergy Mild Hives Verified 08/06/21 17:46 peanut Allergy Mild Dyspnea / Verified 08/06/21 17:46 SOB sulfamethoxazole Allergy Mild hives Verified 08/06/21 17:46 trimethoprim Allergy Mild hives Verified 08/06/21 17:46 Review of Systems Review of Systems: CONSTITUTIONAL: Denies fever, chills, body aches, or sweats. EYES: Denies visual changes, redness, or discharge. ENT: Denies rhinorrhea, congestion, sore throat, or otalgia. CARDIOVASCULAR: Denies chest pain, palpitations, or edema. RESPIRATORY: Denies cough or dyspnea. GASTROINTESTINAL: Denies abdominal pain, nausea, vomiting, or diarrhea. GENITOURINARY: Positive for dysuria, increased frequency, hesitancy. Negative for hematuria. SKIN: Denies rash or itching. MUSCULOSKELETAL: Denies back pain, flank pain, joint pain, or myalgia. NEUROLOGIC: Denies headache, numbness, or weakness. PSYCHIATRIC: Denies anxiety or depression. All other systems reviewed are negative, except as documented in HPI. [facility] Past Medical History Medical History Hypertension Comments At the time of my signature, I reviewed and agree with the nursing past medical, surgical, social, and family history. There is no relevant family history pertinent to the patient complaint. Exam Narrative: GENERAL: This is a well-nourished, well-developed adult, in no apparent distress. They are non ill-appearing, nontoxic appearing. HEAD: normocephalic, atraumatic. EYES: Sclera clear/white. Vision is grossly intact. Conjunctiva normal bilaterally. Extraocular movements intact. EARS: External ears normal,Hearing grossly intact. NOSE: External nose normal THROAT: Mucous membranes moist NECK: Normal range of motion CARDIOVASCULAR: Regular rate and rhythm. Normal S1-S2. No clicks, gallops, rubs, murmurs. RESPIRATORY: Respiratory rate normal, respiratory effort nonlabored, no respiratory distress. Lung sounds clear to auscultation throughout. Lung sounds equal bilaterally. No adventitious lung sounds. GASTROINTESTINAL: Abdomen soft, flat, non-tender, nondistended. SKIN: warm, Dry, intact with no suspicious lesions or rash, good texture and turgor. NEURO: awake, alert, and oriented to person, place and time. There were no obvious focal neurologic abnormalities. EXTREMITIES: No joint tenderness, effusion, or edema noted. BACK: Nontender without deformity. No CVA tenderness. Course Course Emergency Course: Portions of this record may have been created with voice recognition software Level of Care: Express Care Visit Vital Signs Vital signs: Vital Signs Temperature 97.5 F L 07/26/25 10:06 Pulse Rate 97 07/26/25 10:06 Respiratory Rate 20 07/26/25 10:06 Blood Pressure 132/99 H 07/26/25 10:06 Pulse Oximetry 100 07/26/25 10:06 Oxygen Delivery Room Air 07/26/25 10:06 Temperature 97.5 F L 07/26/25 10:06 Pulse Rate 97 07/26/25 10:06 Respiratory Rate 20 07/26/25 10:06 Blood Pressure 132/99 H 07/26/25 10:06 Pulse Oximetry 100 07/26/25 10:06 Oxygen Delivery Room Air 07/26/25 10:06 MDM - Female Genitourinary MDM Narrative Medical decision making narrative: Urine dipstick shows evidence of urinary tract infection. Symptoms consistent with urinary tract infection. Urine culture pending. Will treat with Macrobid. Discussed physical exam findings. Advised supportive measures and signs/symptoms to go to the ER. Pt is appropriate for outpt treatment and f/u. Differential Diagnosis Differential diagnosis: Likely urinary tract infection, cystitis and other (Pyelonephritis) Lab Data Attestation: I reviewed the patient's lab results. Labs: Lab Results 07/26/25 Range/Units 10:42 POC Urine Color Dark POC Urine Clarity Cloudy POC Urine pH 7.0 POC Ur Specif [place] 1.030 POC Urine Protein 1+ (Negative) POC Ur Glucose (UA) Negative (Negative) POC Urine Ketones Negative (Negative) POC Urine Blood 1+ (Negative) POC Urine Nitrite Negative (Negative) POC Urine Bilirubin Negative (Negative) POC Urine Urobilinogen 1.0 POC U Leukocyte Esteras 1+ (Negative) Discharge Plan Discharge Clinical Impression: Urinary tract infection Qualifiers: Urinary tract infection type: site unspecified Hematuria presence: with hematuria Qualified Code(s): N39.0 - Urinary tract infection, site not specified Patient Disposition: Home Condition: Stable Instructions: Antibiotic Form, Urinary Tract Infection in Women (ED) Additional Instructions: Take the antibiotic as prescribed The urine will be sent of for a culture to identify what type of bacteria is causing your infection. If the culture shows that the antibiotic will not get rid of your infection, you will be notified and a new antibiotic will be called in for you. Increase water intake you will need to follow up with your PCP 3-5 days. Go to the ER for any worsening symptoms, abdominal pain, fevers, flank pain, nausea, vomiting, or any other concerns Patient Language: Tongan Prescriptions: New nitrofurantoin monohyd/m-cryst [Macrobid] 100 mg capsule 100 mg PO Q12H 5 Days Qty: 10 0RF Rx Instructions: must administer with a meal/food No Action norethindrone ac-eth estradiol [ (21)] 1.5-30 mg-mcg Tablet 1 tablet PO DAILY baclofen 10 mg tablet 10 mg PO BID Qty: 10 0RF amlodipine 5 mg tablet Ozempic 1 mg/dose (4 mg/3 mL) pen injector SUBCUT Follow-up/Referrals: Tyron,Bill Serrano MD [Primary Care Provider] Time of Disposition: 10:50
== END 2025-07-26 10:56 | disposition home or self-care (01) ==
PROVIDERS: PCP Family Medicine
DX: N39.0 Urinary tract infection, site not specified (principal); I10 Essential (primary) hypertension
CPT/HCPCS: 81003; 87086; 99213; G0463